=== PATIENT | female | born 1985 | race Caucasian/White ===

== ENCOUNTER 2016-05-28 06:19 | Inpatient (IN) | payer BC, MEDICAID ==
[2016-05-28] MEDS ORDERED: OXYTOCIN/NORMAL SALINE 1,000 ML IV PRN (06:23)
[2016-05-28] MEDS ORDERED: RINGERS SOLUTION,LACTATED 300 ML IV ONE (06:23)
[2016-05-28 07:11] LABS: APPEARANCE,URINE CLOUDY; BILIRUBIN,URINE NEGATIVE (NEGATIVE); GLUCOSE, URINE NEGATIVE (NEGATIVE); KETONES,URINE NEGATIVE (NEGATIVE); LEUKOCYTE ESTERASE,URINE SMALL (NEGATIVE); NITRITE,URINE NEGATIVE (NEGATIVE); PROTEIN,URINE NEGATIVE (NEGATIVE); URINE SPECIFIC GRAVITY 1.012; UROBILINOGEN,URINE NEGATIVE mg/dL (<2.0)
[2016-05-28 07:17] LABS: URINE BARBITURATES SCREEN NEGATIVE; URINE METHADONE SCREEN NEGATIVE; URINE OPIATES LOW NEGATIVE; URINE PHENCYCLIDINE SCREEN NEGATIVE
[2016-05-28 07:24] LABS: ABSOLUTE EOSINOPHILS # (AUTO) 0.1 10^3/uL (0.0-0.6); ABSOLUTE MONOCYTES (AUTO) 0.7 10^3/uL (0.1-1.4); ABSOLUTE NEUT (AUTO) 5.6 10^3/uL (1.7-8.2); BASOPHILS % (AUTO) 0.1 % (0-2); EOSINOPHILS % (AUTO) 1.5 % (0-6); HEMATOCRIT 33.6 % (36.0-47.0); HEMOGLOBIN 11.7 g/dL (12.0-15.5); HGB HCT DIFFERENCE 1.5; LYMPHOCYTES % (AUTO) 23.9 % (13-45); MEAN CORPUSCULAR HEMOGLOBIN 31.4 pg (27.0-33.4); MEAN CORPUSCULAR HGB CONC 34.8 g/dL (32.0-36.0); MEAN CORPUSCULAR VOLUME 90 fl (80-97); MONOCYTES % (AUTO) 8.1 % (3-13); RED BLOOD COUNT 3.73 10^6/uL (3.72-5.28); RED CELL DISTRIBUTION WIDTH 14.4 % (11.5-14.0); SEGMENTED NEUTROPHILS % (AUTO) 66.4 % (42-78); WHITE BLOOD COUNT 8.4 10^3/uL (4.0-10.5)
[2016-05-28 07:42] LABS: ALANINE AMINOTRANSFERASE 20 U/L (9-52); ALBUMIN 2.7 g/dL (3.5-5.0); ALKALINE PHOSPHATASE 97 U/L (38-126); ANION GAP 12 (5-19); ASPARTATE AMINO TRANSFERASE 16 U/L (14-36); BILIRUBIN,TOTAL 0.3 mg/dL (0.2-1.3); BLOOD UREA NITROGEN 6 mg/dL (7-20); CALCIUM 8.4 mg/dL (8.4-10.2); CARBON DIOXIDE 19 mmol/L (22-30); CHLORIDE 107 mmol/L (98-107); CREATININE RESULT 0.67 mg/dL (0.52-1.25); GLUCOSE 84 mg/dL (75-110); LDH 381 U/L (313-618); POTASSIUM 3.9 mmol/L (3.6-5.0); SODIUM 137.6 mmol/L (137-145); TOTAL PROTEIN 5.5 g/dL (6.3-8.2); URIC ACID 5.2 mg/dL (2.5-6.2)
--- NOTE | 2016-05-28 08:01 | L&D Flow Sheet ---
LD Flowsheet Datetime Report Generated by CPN: 05/28/2016 08:00 Datetime: 05/28/2016 07:43 Vital Signs NBP Sys/Josefina/Mean (mmHg): 127 (QS system process) : 83 (QS system process) : 101 (QS system process) Pulse: 85 (QS system process) Datetime: 05/28/2016 07:32 Vaginal Exam Dilatation (cm): 1.0 (Joanna Clark, MASSIMO) Effacement (%): 25 (Joanna Clark, MASSIMO) Station: -3 (Joanna Clark, MASSIMO) Exam by: HSamantha Clark RN (Joanna Clark, MASSIMO) Vaginal Bleeding: None (Joanna Clark RN) Cervix, Consistency: Moderate (Joanna Clark, MASSIMO) Cervix, Position: Posterior (Joanna Clark, MASSIMO) Datetime: 05/28/2016 07:20 Communication Communication Comments: Report given and care relinquished to H. Eduardo, RN (Ariella Lattibeaudeir, RN) Datetime: 05/28/2016 06:54 Patient Care Patient Care Comments: construction craft laborer at bedside (Ariella Lattibsavannaudeir, RN) Datetime: 05/28/2016 06:51 Uterine Activity Contraction Comments: toco applied (Ariellagabino Rodrigez, RN) Assessment A Comments: monitor applied (Ariella Rodrigez, RN)
[2016-05-28] MEDS ORDERED: MISOPROSTOL 0.1 MG TABLET PV ONE (08:41)
[2016-05-28] MEDS ORDERED: MISOPROSTOL 0.1 MG TABLET ONE (08:56)
[2016-05-28] MEDS: RINGERS SOLUTION,LACTATED 1,000 ML IV PRN ×3 (09:02→22:08)
--- NOTE | 2016-05-28 10:00 | L&D Flow Sheet ---
LD Flowsheet Datetime Report Generated by CPN: 05/28/2016 10:00 Datetime: 05/28/2016 09:54 Provider Reviewed Strip: Yes (Joanna Clark RN) Communication: Provider at Bedside (Joanna Clark RN) Provider Notified (Name): Adri QuinnPAYTON at bedside assessing patient and plan of care (Joanna Clark RN) Notification Reason: Status Update; Status; Labor Status; Uterine Activity; Lab/Diagnostic Study (Joanna Clark RN) Datetime: 05/28/2016 09:43 NBP Sys/Josefina/Mean (mmHg): 103 (QS system process) : 51 (QS system process) : 71 (QS system process) Pulse: 83 (QS system process) LaborFlag: Labor (QS system process) Datetime: 05/28/2016 09:13 Stage of : Labor (Joanna Clark, ) NBP Sys/Josefina/Mean (mmHg): 109 (QS system process) : 59 (QS system process) : 77 (QS system process) Pulse: 82 (QS system process) Respirations: 15 (Joanna Clark, ) LaborFlag: Labor (QS system process) Datetime: 05/28/2016 09:07 Cervical Ripening Agents: Cytotec @ (Annotations: 25 mcg PO; 25 mcg PV) (Joanna Clark, ) Datetime: 05/28/2016 09:04 I/O Interventions: Up to BR (Joanna Midland, RN) Datetime: 05/28/2016 09:00 Monitor Mode: External (Joanna Rossard, RN) Frequency (min): x1 (Joanna Midland, RN) Quality: Mild (Joanna Eduardo, RN) Duration (sec): 90 (Joanna Midland, RN) Resting Tone (Palpate): Relaxed (Joanna Midland, RN) Contraction Comments: irregular with uterine irritability noted (Joanna Midland, RN) Monitor Mode: External US (Joanna Midland, RN) FHR Baseline Rate : 125 (Joanna Midland, RN) FHR Baseline Changes: No Baseline Change (Joanna Eduardo, RN) Variability: Moderate 6-25 bpm (Joanna Eduardo, RN) Accelerations: 15X15 (Joanna Midland, RN) Decelerations: None (Joanna Midland, RN) Datetime: 05/28/2016 08:43 Stage of : Labor (Joanna Clark RN) NBP Sys/Josefina/Mean (mmHg): 128 (QS system process) : 82 (QS system process) : 99 (QS system process) Pulse: 82 (QS system process) Respirations: 14 (Joanna Clark RN) LaborFlag: Labor (QS system process) Datetime: 05/28/2016 08:35 Stage of : Labor (Joanna Clark RN) Temperature (F): 98.5 (Joanna Clark RN) Temperature (C): 36.9 (QS system process) Temperature Route: Oral (Joanna Clark RN) LaborFlag: Labor (QS system process) Datetime: 05/28/2016 08:30 Monitor Mode: External (Joanna Clark RN) Monitor Interventions for UA: Rulo Adjusted (Joanna Clark RN) Frequency (min): none (Joanna Clark RN) Resting Tone (Palpate): Relaxed (Joanna Clark RN) Contraction Comments: patient denies; none noted (Joanna Clark RN) Monitor Mode: External US (Joanna Clark RN) FHR Baseline Rate : 120 (Joanna Clark RN) FHR Baseline Changes: No Baseline Change (Joanna Clark RN) Variability: Moderate 6-25 bpm (Joanna Clark RN) Accelerations: 15X15 (Joanna Clark RN) Decelerations: None (Joanna Clark RN) Datetime: 05/28/2016 08:24 Monitor Interventions for UA: Rulo Adjusted (Joanna Clark RN) Monitor Mode: External US (Joanna Clark RN) Monitor Interventions for FHR: Ultrasound Adjusted (Joanna Clark RN) Variability: Moderate 6-25 bpm (Joanna Clark RN) Accelerations: 15X15 (Joanna Clark RN) Decelerations: None (Joanna Clark RN) Pain Scale: 0 (Joanna Clark RN) Pain Presence: None/Denies (Joanna Clark RN) Pain Type: N/A (Joanna Clark, MASSIMO) Pain Goal: 1 (Joanna Clark RN) Pain Relief Measures: Comfort Measures (Joanna Clark RN) Vaginal Bleeding: None (Joanna Clark RN) Level of Consciousness: Fully Conscious (Joanna Clark RN) DTR's/Clonus: DTRs 2+; No Clonus (Joanna Clark RN) Headache: Denies (Joanna Clark RN) Breath Sounds, Left: Clear and Equal (Joanna Midland, RN) Breath Sounds, Right: Clear and Equal (Joanna Clark, RN) Nausea/Vomiting: Denies (Joanna Clark, RN) RUQ Epigastric Pain: Denies (Joanna Clark, RN) IV/Blood Work: IV Infusing per Order (Joanna Clark, RN) Oxygen Method: Room Air (Joanna Clark, RN) Patient Position/Activity: Right Lateral; Low Fowlers (Joanna Clark, RN) Comfort Measures: Breathing/Relaxation; Family Support (Joanna Clark, RN) I/O Interventions: Clear Liquids Given (Joanna Clark, RN) Instructional Method: Verbal; Patient Instructed; Family/Support Person Instructed; Verbalized Understanding (Joanna Clark, RN) Plan of Care: Plan of Care Discussed; Vaginal Delivery; Labor; Induction (Joanna Clark, RN) Unit Routine: [place] to Room; Call Carter; Bed; Visiting Policy; Waiting Areas; Infant Security; Phone/Cell Phone Use; Photography; Unit Personnel; Handwashing; Flu/Illness Precautions; Monitoring; IV Pumps; Safety/Fall Risk Prevention; Diet/Nutrition Services; Bathroom Privileges; Routine Time Outs; Medications (Joanna Clark, RN) Labor/Induction: Labor Stages; Cervical Ripening; Induction; Artificial Rupture of Membranes; Interventions; Activity (Joanna Clark, RN) Pain Management: PRN Medications; Pain Scale/Goals; Comfort Measures (Joanna Clark, RN) Medications: Cervical Ripening; Pitocin (Joanna Clark, RN) PTL/PROM: Hydration; Signs/Symptoms of Infection; Expected Outcomes (Joanna Clark, RN) Related: Common Discomforts of ; Maternal Physical Changes; Maternal Emotional Changes; Nutrition; Hydration; Activity and Rest (Joanna Clark, RN) LaborFlag: Labor (QS system process) Datetime: 05/28/2016 08:13 Stage of : Labor (Joanna Clark RN) NBP Sys/Josefina/Mean (mmHg): 125 (QS system process) : 64 (QS system process) : 87 (QS system process) Pulse: 82 (QS system process) LaborFlag: Labor (QS system process) Datetime: 05/28/2016 08:00 Monitor Mode: External (Joanna Clark RN) Frequency (min): x1 (Joanna Clark RN) Quality: Mild (Joanna Clark RN) Duration (sec): 100 (Joanna Clark RN) Duration Criteria: Less than Two 120 Second Contractions (Joanna Clark RN) Resting Tone (Palpate): Relaxed (Joanna Clark, MASSIMO) Contraction Comments: irregular pattern (Joanna Clark, MASSIMO) Monitor Mode: External US (Joanna Clark, MASSIMO) FHR Baseline Rate : 125 (Joanna Clark RN) FHR Baseline Changes: No Baseline Change (Joanna Clark RN) Variability: Moderate 6-25 bpm (Joanna Clark, RN) Accelerations: 15X15 (Joanna Clark, RN) Decelerations: None (Joanna Clark, MASSIMO)
--- NOTE | 2016-05-28 12:01 | L&D Flow Sheet ---
LD Flowsheet Datetime Report Generated by CPN: 05/28/2016 12:00 Datetime: 05/28/2016 11:43 NBP Sys/Josefina/Mean (mmHg): 121 (QS system process) : 64 (QS system process) : 85 (QS system process) Pulse: 82 (QS system process) LaborFlag: Labor (QS system process) Datetime: 05/28/2016 11:33 Pain Presence: None/Denies (Joanna Clark, RN) Pain Type: N/A (Joanna Clark RN) Pain Relief Measures: Comfort Measures (Joanna Clark RN) Comfort Measures: Rocking Chair; Family Support (Joanna Clark RN) LaborFlag: Labor (QS system process) Datetime: 05/28/2016 11:30 Monitor Mode: External (Joanna Clark RN) Monitor Interventions for UA: Jackpot Adjusted (Joanna Clark RN) Frequency (min): x1 (Joanna Clark RN) Duration (sec): 80 (Joanna Clark RN) Resting Tone (Palpate): Relaxed (Joanna Clark, MASSIMO) Contraction Comments: irregular; uterine irritability (Joanna Clark, MASSIMO) Monitor Mode: External US (Joanna Clark, MASSIMO) FHR Baseline Rate : 120 (Joanna Clark RN) FHR Baseline Changes: No Baseline Change (Joanna Clark RN) Variability: Moderate 6-25 bpm (Joanna Clark, MASSIMO) Accelerations: 15X15 (Joanna Clark, RN) Decelerations: None (Joanna Clark RN) Comments: audible movement noted (Joanna Clark RN) Datetime: 05/28/2016 11:25 I/O Interventions: Up to BR (Joanna Clark RN) Datetime: 05/28/2016 11:13 Stage of : Labor (Joanna Clark RN) NBP Sys/Josefina/Mean (mmHg): 91 (QS system process) : 49 (QS system process) : 68 (QS system process) Pulse: 75 (QS system process) Respirations: 16 (Joanna Clark RN) LaborFlag: Labor (QS system process) Datetime: 05/28/2016 11:00 Monitor Mode: External (Joanna Clark RN) Frequency (min): 2-9 (Joanna Clark RN) Quality: Mild (Joanna Clark RN) Duration (sec): 50-90 (Joanna Clark RN) Resting Tone (Palpate): Relaxed (Joanna Clark RN) Contraction Comments: irregular; uterine irritability (Joanna Clark RN) Monitor Mode: External US (Joanna Clark RN) FHR Baseline Rate : 125 (oJanna Clark RN) FHR Baseline Changes: No Baseline Change (Joanna Clark RN) Variability: Moderate 6-25 bpm (Joanna Clark RN) Accelerations: 15X15 (Joanna Clark, RN) Decelerations: None (Joanna Clark, RN) Datetime: 05/28/2016 10:43 Stage of : Labor (Joanna Clark RN) NBP Sys/Josefina/Mean (mmHg): 106 (QS system process) : 57 (QS system process) : 77 (QS system process) Pulse: 82 (QS system process) Respirations: 14 (Joanna Clark RN) LaborFlag: Labor (QS system process) Datetime: 05/28/2016 10:30 Monitor Mode: External (Joanna Clark RN) Frequency (min): x2 (Joanna Clark RN) Quality: Mild (Joanna Clark RN) Duration (sec): 60/70 (Joanna Clark RN) Resting Tone (Palpate): Relaxed (Joanna Clark RN) Monitor Mode: External US (Joanna Clark RN) FHR Baseline Rate : 130 (Joanna Clark RN) FHR Baseline Changes: No Baseline Change (Joanna Clark RN) Variability: Moderate 6-25 bpm (Joanna Clark RN) Accelerations: 15X15 (Joanna Clark RN) Decelerations: None (Joanna Clark RN) Datetime: 05/28/2016 10:13 Stage of : Labor (Joanna Clark RN) NBP Sys/Josefina/Mean (mmHg): 104 (QS system process) : 51 (QS system process) : 73 (QS system process) Pulse: 81 (QS system process) Respirations: 16 (Joanna Clark RN) LaborFlag: Labor (QS system process) Datetime: 05/28/2016 10:00 Monitor Mode: External (Joanna Clark RN) Monitor Interventions for UA: Jackpot Adjusted (Joanna Clark RN) Frequency (min): none (Joanna Clark RN) Resting Tone (Palpate): Relaxed (Joanna Clark RN) Contraction Comments: patient denies; uterine irritability noted (Joanna Clark RN) Monitor Mode: External US (Joanna Clark RN) FHR Baseline Rate : 130 (Joanna Clark RN) FHR Baseline Changes: No Baseline Change (Joanna Clark RN) Variability: Moderate 6-25 bpm (Joanna Clark RN) Accelerations: 15X15 (Joanna Clark RN) Decelerations: None (Joanna Clark RN)
[2016-05-28] MEDS ORDERED: OXYTOCIN/NORMAL SALINE 20 UNIT/1,000 ML RTUINJ ONE ×2 (13:03→17:49)
--- NOTE | 2016-05-28 13:56 | L&D Progress Notes ---
PROGRESS NOTES Datetime Report Generated by CPN: 05/28/2016 13:56 PROGRESS NOTE Impression: Normal Progression of Labor Plan: Continue Present Management; Anticipate Vaginal Delivery Informed Consent Obtained: Vaginal Delivery; Risks, Benefits and Alternatives Discussed Vital Signs : Reviewed Comment: induction of labor cervix favorable after cytotec 25 mcg po and 25 mcg pv pt reports increased pressure 2/70/0 start pitocin anticipate VAGINAL EXAM Dilatation: 2 Effacement: 70 Station: 0 Contractions: irregular MEMBRANES Membranes: Intact FETUS A FHR - Baseline: 120 Monitoring: External US Variability: Moderate 6-25bpm Accelerations: 15X15 Decelerations: None FHR Category: Category I SIGNATURE SIGNATURE: [id number] Assignment: Jenifer Saini MD Signature: with User ID: [email or web address] : with User ID: [email or web address]
--- NOTE | 2016-05-28 14:01 | L&D Flow Sheet ---
LD Flowsheet Datetime Report Generated by CPN: 05/28/2016 14:00 Datetime: 05/28/2016 13:45 NBP Sys/Josefina/Mean (mmHg): 122 (QS system process) : 61 (QS system process) : 85 (QS system process) Pulse: 85 (QS system process) LaborFlag: Labor (QS system process) Datetime: 05/28/2016 13:30 NBP Sys/Josefina/Mean (mmHg): 116 (QS system process) : 62 (QS system process) : 81 (QS system process) Pulse: 84 (QS system process) Monitor Mode: External (Joanna Union, RN) Frequency (min): 2-3.5 (Joanna Union, RN) Quality: Mild (Joanna Eduardo, RN) Duration (sec): 50-80 (Joanna Eduardo, RN) Duration Criteria: Less than Two 120 Second Contractions (Joanna Union, RN) Pattern: Normal: <= 5 Contractions in 10 Minutes (Joanna Rossard, RN) Resting Tone (Palpate): Relaxed (Joanna Union, RN) Monitor Mode: External US (Jonana Rossard, RN) FHR Baseline Rate : 135 (Joanna Union, RN) FHR Baseline Changes: No Baseline Change (Joanna Union, RN) Variability: Moderate 6-25 bpm (Ojanna Union, RN) Accelerations: 15X15 (Joanna Eduardo, RN) Decelerations: None (Joanna Union, RN) LaborFlag: Labor (QS system process) Datetime: 05/28/2016 13:15 Monitor Mode: External (Joanna Union, RN) Frequency (min): x1 (Joanna Union, RN) Quality: Mild (Joanna Union, RN) Duration (sec): 60 (Joanna Eduardo, RN) Resting Tone (Palpate): Relaxed (Joanna Rossard, RN) Monitor Mode: External US (Joanna Rossard, RN) FHR Baseline Rate : 130 (Joanna Union, RN) FHR Baseline Changes: No Baseline Change (Joanna Union, RN) Variability: Moderate 6-25 bpm (Joanna Eduardo, RN) Accelerations: 15X15 (Joanna Union, RN) Decelerations: None (Joanna Union, MASSIMO) Pitocin (milliunit): Pitocin Remains (milliunits) @ (Annotations: 2) (Joanna Clark, MASSIMO) Datetime: 05/28/2016 13:13 Stage of : Labor (Joanna Clark, MASSIMO) NBP Sys/Josefina/Mean (mmHg): 131 (QS system process) : 83 (QS system process) : 102 (QS system process) Pulse: 97 (QS system process) Respirations: 12 (Joanna Clark, MASSIMO) LaborFlag: Labor (QS system process) Datetime: 05/28/2016 13:10 Pitocin (milliunit): Pitocin Started (milliunits) @ 2 (Joanna Clark, MASSIMO) Datetime: 05/28/2016 13:03 Patient Position/Activity: High Fowlers; Tailors (Joanna Clark, MASSIMO) Datetime: 05/28/2016 13:00 Stage of : Labor (Joanna Clark RN) Monitor Mode: External (Joanna Clark, AMSSIMO) Frequency (min): 2.5-3 (Joanna Clark, MASSIMO) Quality: Mild (Joanna Clark RN) Duration (sec): 60-90 (Joanna Clark, MASSIMO) Duration Criteria: Less than Two 120 Second Contractions (Joanna Clark, MASSIMO) Pattern: Normal: <= 5 Contractions in 10 Minutes (Joanna Clark, MASSIMO) Resting Tone (Palpate): Relaxed (Joanna Clark, MASSIMO) Monitor Mode: External US (Joanna Clark, MASSIMO) FHR Baseline Rate : 130 (Joanna Clark, MASSIMO) FHR Baseline Changes: No Baseline Change (Joanna Clark, MASSIMO) Variability: Moderate 6-25 bpm (Joanna Clark, MASSIMO) Accelerations: 15X15 (Joanna Clark, MASSIMO) Decelerations: None (Joanna Clark, MASSIMO) Pain Scale: 1 (Joanna Clark RN) Pain Presence: Intermittent (Joanna Clark, MASSIMO) Pain Type: tightening (Joanna Clark, MASSIMO) Pain Location: Abdomen (Joanna Clark RN) Pain Goal: 1 (Joanna Eduardo, RN) Pain Relief Measures: Comfort Measures (Joanna Clark RN) Pain Coping: Talking Through Contractions (Joanna Clark RN) Instructional Method: Verbal; Patient Instructed; Family/Support Person Instructed; Verbalized Understanding (Joanna Clark RN) Plan of Care: Labor; Induction (Joanna Clark RN) Labor/Induction: Augmentation; Induction (Joanna Clark RN) Pain Management: Pain Scale/Goals; Comfort Measures (Joanna Clark, RN) Medications: Pitocin (Joanna Clark RN) LaborFlag: Labor (QS system process) Datetime: 05/28/2016 12:57 Dilatation (cm): 2.0 (Joanna Clark, MASSIMO) Effacement (%): 70 (Joanna Clark, RN) Station: 0 (Joanna Clark, RN) Exam by: Louis Quinn CNM (Joanna Clark, RN) Vaginal Bleeding: None (Joanna Clark, RN) Cervix, Consistency: Soft (Joanna Clark, RN) Cervix, Position: Midposition (Joanna Clark, RN) Datetime: 05/28/2016 12:45 Monitor Mode: External (Joanna Rossard, RN) Frequency (min): x1 (Joanna Eduardo, RN) Quality: Mild (Joanna Union, RN) Duration (sec): 60 (Joanna Union, RN) Duration Criteria: Less than Two 120 Second Contractions (Joanna Eduardo, RN) Pattern: Normal: <= 5 Contractions in 10 Minutes (Joanna Union, RN) Resting Tone (Palpate): Relaxed (Joanna Union, RN) Monitor Mode: External US (Joanna Rossard, RN) FHR Baseline Rate : 135 (Joanna Eduardo, RN) FHR Baseline Changes: No Baseline Change (Joanna Union, RN) Variability: Moderate 6-25 bpm (Joanna Eduardo, RN) Accelerations: 15X15 (Joanna Union, RN) Decelerations: None (Joanna Union, RN) Datetime: 05/28/2016 12:43 Stage of : Labor (Joanna Rossard, RN) NBP Sys/Josefina/Mean (mmHg): 134 (QS system process) : 69 (QS system process) : 95 (QS system process) Pulse: 78 (QS system process) Respirations: 15 (Joanna Eduardo, RN) LaborFlag: Labor (QS system process) Datetime: 05/28/2016 12:30 Monitor Mode: External (Joanna Union, RN) Frequency (min): 2-3 (Joanna Union, RN) Quality: Mild (Joanna Eduardo, RN) Duration (sec): 60-110 (Joanna Eduardo, RN) Duration Criteria: Less than Two 120 Second Contractions (Joanna Union, RN) Pattern: Normal: <= 5 Contractions in 10 Minutes (Joanna Eduardo, RN) Resting Tone (Palpate): Relaxed (Joanna Union, RN) Monitor Mode: External US (Joanna Union, RN) FHR Baseline Rate : 130 (Joanna Union, RN) FHR Baseline Changes: No Baseline Change (Joanna Union, RN) Variability: Moderate 6-25 bpm (Joanna Eduardo, RN) Accelerations: 15X15 (Joanna Union, RN) Decelerations: None (Joanna Union, RN) Datetime: 05/28/2016 12:28 Patient Care Comments: Patient eating lunch as ordered by Adri Quinn CNM (Joanna Union, RN) Datetime: 05/28/2016 12:13 Stage of : Labor (Joanna Clark RN) NBP Sys/Josefina/Mean (mmHg): 131 (QS system process) : 60 (QS system process) : 87 (QS system process) Pulse: 84 (QS system process) Respirations: 14 (Joanna Clark RN) Temperature (F): 98.4 (Joanna Clark RN) Temperature (C): 36.9 (QS system process) Temperature Route: Axillary (Joanna Clark RN) LaborFlag: Labor (QS system process) Datetime: 05/28/2016 12:00 Monitor Mode: External (Joanna Clark RN) Frequency (min): 2-4 (Joanna Clark RN) Quality: Mild (Joanna Clark RN) Duration (sec): 70-110 (Joanna Clark RN) Duration Criteria: Less than Two 120 Second Contractions (Joanna Clark RN) Pattern: Normal: <= 5 Contractions in 10 Minutes (Joanna Clark RN) Resting Tone (Palpate): Relaxed (Joanna Clark RN) Contraction Comments: patient reports feeling intermittent abdominal tightening (Joanna Clark RN) Monitor Mode: External US (Joanna Clark RN) FHR Baseline Rate : 130 (Joanna Clark RN) FHR Baseline Changes: No Baseline Change (Joanna Clark RN) Variability: Moderate 6-25 bpm (Joanna Clark RN) Accelerations: 15X15 (Joanna Union, RN) Decelerations: None (Joanna Clark RN) Pain Scale: 1 (Joanna Clark RN) Pain Presence: Intermittent (Joanna Clark, RN) Pain Location: Abdomen (Joanna Clark, MASSIMO) Pain Goal: 1 (Joanna Clark RN) Pain Relief Measures: Comfort Measures (Joanna Clark, MASSIMO) Pain Coping: Talking Through Contractions (Joanna Clark, RN) Pain Assessment Comments: intermittent abdominal tightening (Joanna Clark, MASSIMO) Comfort Measures: Rocking Chair; Family Support (Joanna Clark RN) LaborFlag: Labor (QS system process)
--- NOTE | 2016-05-28 16:01 | L&D Flow Sheet ---
LD Flowsheet Datetime Report Generated by CPN: 05/28/2016 16:00 Datetime: 05/28/2016 15:59 IV/Blood Work: IV Infusing per Order (Joanna Clark, RN) Patient Position/Activity: Left Tilt; High Fowlers (Joanna Rossard, RN) Datetime: 05/28/2016 15:52 I/O Interventions: Up to BR (Joanna Clark, RN) Datetime: 05/28/2016 15:45 Monitor Mode: External; Palpation (Joanna Clark, RN) Monitor Interventions for UA: [place] Adjusted (Joanna Clark, RN) Frequency (min): 2-3 (Joanna Clark, RN) Quality: Mild/Moderate (Joanna Clark, RN) Duration (sec): 50-70 (Joanna Clark, RN) Duration Criteria: Less than Two 120 Second Contractions (Joanna Clark, RN) Pattern: Normal: <= 5 Contractions in 10 Minutes (Joanna Clark, RN) Resting Tone (Palpate): Relaxed (Joanna Clark, RN) Monitor Mode: External US (Joanna Clark, RN) FHR Baseline Rate : 140 (Joanna Clark, RN) FHR Baseline Changes: No Baseline Change (Joanna Clark, RN) Variability: Moderate 6-25 bpm (Joanna Clark, RN) Accelerations: 15X15 (Joanna Clark, RN) Decelerations: None (Joanna Clark, RN) Communication: RN at Bedside (Joanna Clark, MASSIMO) Datetime: 05/28/2016 15:33 Patient Care Comments: standing at side of bed swaying; family support at bedside (Joanna Clark, RN) Datetime: 05/28/2016 15:30 Monitor Mode: External (Joanna Clark, RN) Frequency (min): 1.5-2 (Joanna Clark, RN) Quality: Mild/Moderate (Joanna Clark, RN) Duration (sec): 50-60 (Joanna Clark, RN) Duration Criteria: Less than Two 120 Second Contractions (Joanna Clark, RN) Pattern: Normal: <= 5 Contractions in 10 Minutes (Joanna Clark, RN) Resting Tone (Palpate): Relaxed (Joanna Clark, RN) Monitor Mode: External US (Joanna Clark, RN) FHR Baseline Rate : 135 (Joanna Clark, RN) FHR Baseline Changes: No Baseline Change (Joanna Clark, RN) Variability: Moderate 6-25 bpm (Joanna Jersey, RN) Accelerations: 15X15 (Joanna Jersey, RN) Decelerations: None (Joanna Rossard, RN) Pitocin (milliunit): Pitocin Increased to (milliunits) @ (Annotations: 10) (Joanna Clark, RN) Datetime: 05/28/2016 15:15 Monitor Mode: External (Joanna Clark, MASSIMO) Frequency (min): 1.5-4 (Joanna Clark RN) Quality: Mild/Moderate (Joanna Clark, RN) Duration (sec): 50-60 (Joanna Clark, RN) Duration Criteria: Less than Two 120 Second Contractions (Joanna Clark, MASSIMO) Pattern: Normal: <= 5 Contractions in 10 Minutes (Joanna Clark RN) Resting Tone (Palpate): Relaxed (Joanna Clark, MASSIMO) Monitor Mode: External US (Joanna Clark, MASSIMO) FHR Baseline Rate : 130 (Joanna Clark RN) FHR Baseline Changes: No Baseline Change (Joanna Clark RN) Variability: Moderate 6-25 bpm (Joanna Clark, RN) Accelerations: 10X10 (Joanna Clark, MASSIMO) Decelerations: None (Joanna Clark, MASSIMO) Pitocin (milliunit): Pitocin Remains (milliunits) @ (Annotations: 8) (Joanna Clark, MASSIMO) Datetime: 05/28/2016 15:00 Stage of : Labor (Joanna Clark, MASSIMO) NBP Sys/Josefina/Mean (mmHg): 131 (QS system process) : 58 (QS system process) : 83 (QS system process) Pulse: 82 (QS system process) Respirations: 16 (Joanna Clark, MASSIMO) Monitor Mode: External (Joanna Clark, MASSIMO) Frequency (min): 1-4 (Joanna Clark RN) Quality: Mild/Moderate (Joanna Clark RN) Duration (sec): 50-70 (Joanna Clark RN) Duration Criteria: Less than Two 120 Second Contractions (Joanna Clark RN) Pattern: Normal: <= 5 Contractions in 10 Minutes (Joanna Clark RN) Resting Tone (Palpate): Relaxed (Joanna Clark RN) Monitor Mode: External US (Joanna Clark RN) FHR Baseline Rate : 130 (Joanna Clark RN) FHR Baseline Changes: No Baseline Change (Joanna Clark RN) Variability: Moderate 6-25 bpm (Joanna Clark RN) Accelerations: 15X15 (Joanna Clark RN) Decelerations: None (Joanna Clark RN) Pain Scale: 2 (Joanna Clark RN) Pain Presence: Intermittent (Joanna Clark RN) Pain Type: Contraction (Joanna Clark RN) Pain Location: Abdomen (Joanna Clark RN) Pain Goal: 1 (Joanna Clark RN) Pain Relief Measures: Comfort Measures (Joanna Clakr RN) Pain Coping: Breathing Through Contractions (Joanna Clark RN) Pitocin (milliunit): Pitocin Increased to (milliunits) @ (Annotations: 8) (Joanna Clark RN) LaborFlag: Labor (QS system process) Datetime: 05/28/2016 14:45 NBP Sys/Josefina/Mean (mmHg): 128 (QS system process) : 59 (QS system process) : 85 (QS system process) Pulse: 85 (QS system process) Monitor Mode: External (Joanna Clark RN) Frequency (min): 2-2.5 (Joanna Clark RN) Quality: Mild/Moderate (Joanna Clark RN) Duration (sec): 50-70 (Joanna Clark, MASSIMO) Duration Criteria: Less than Two 120 Second Contractions (Joanna Clark RN) Pattern: Normal: <= 5 Contractions in 10 Minutes (Joanna Clark RN) Resting Tone (Palpate): Relaxed (Joanna Clark, MASSIMO) Monitor Mode: External US (Joanna Clark, MASSIMO) FHR Baseline Rate : 135 (Joanna Clark RN) FHR Baseline Changes: No Baseline Change (Joanna Clark RN) Variability: Moderate 6-25 bpm (Joanna Clark, MASSIMO) Accelerations: 15X15 (Joanna Clark, MASSIMO) Decelerations: None (Joanna Clark, MASSIMO) Pitocin (milliunit): Pitocin Remains (milliunits) @ (Annotations: 6) (Joanna Clark RN) LaborFlag: Labor (QS system process) Datetime: 05/28/2016 14:35 Patient Care Comments: Sitting in rocking chair; family support at bedside (Joanna Clark RN) Datetime: 05/28/2016 14:30 Monitor Mode: External; Palpation (Joanna Clark RN) Frequency (min): 2-3 (Joanna Clark RN) Quality: Mild/Moderate (Joanna Clark RN) Duration (sec): 50-60 (Joanna Clark RN) Duration Criteria: Less than Two 120 Second Contractions (Joanna Clark RN) Pattern: Normal: <= 5 Contractions in 10 Minutes (Joanna Clark RN) Resting Tone (Palpate): Relaxed (Joanna Clark RN) Monitor Mode: External US (Joanna Clark RN) FHR Baseline Rate : 135 (Joanna Clark RN) FHR Baseline Changes: No Baseline Change (Joanna Clark RN) Variability: Moderate 6-25 bpm (Joanna Clark RN) Accelerations: 15X15 (Joanna Clark RN) Decelerations: None (Joanna Clark RN) Comments: audible movement noted; patient reports positive movement (Joanna Clark RN) Pitocin (milliunit): Pitocin Increased to (milliunits) @ (Annotations: 6) (Joanna Clark RN) Datetime: 05/28/2016 14:15 Stage of : Labor (Joanna Clark RN) NBP Sys/Josefina/Mean (mmHg): 137 (QS system process) : 61 (QS system process) : 88 (QS system process) Pulse: 76 (QS system process) Respirations: 14 (Joanna Clark RN) Monitor Mode: External (Joanna Clark RN) Frequency (min): 1.5-2 (Joanna Clark RN) Quality: Mild/Moderate (Joanna Clark RN) Duration (sec): 40-60 (Joanna Clark RN) Duration Criteria: Less than Two 120 Second Contractions (Joanna Clark RN) Pattern: Normal: <= 5 Contractions in 10 Minutes (Joanna Clark RN) Resting Tone (Palpate): Relaxed (Joanna Clark RN) Monitor Mode: External US (Joanna Clark RN) FHR Baseline Rate : 135 (Joanna Clark RN) FHR Baseline Changes: No Baseline Change (Joanna Clark RN) Variability: Moderate 6-25 bpm (Joanna Clark RN) Accelerations: 15X15 (Joanna Clark RN) Decelerations: None (Joanna Clark RN) Pitocin (milliunit): Pitocin Remains (milliunits) @ (Annotations: 4) (Joanna Clark RN) LaborFlag: Labor (QS system process) Datetime: 05/28/2016 14:13 Pain Scale: 2 (Joanna Clark RN) Pain Presence: Intermittent (Joanna Clark RN) Pain Type: Contraction (Joanna Clark RN) Pain Location: Abdomen (Joanna Clark, MASSIMO) Pain Goal: 1 (Joanna Clark RN) Pain Relief Measures: Comfort Measures (Joanna Clark, MASSIMO) Pain Coping: Breathing Through Contractions (Joanna Clark RN) Patient Position/Activity: Birthing Ball (Joanna Clark, MASSIMO) Comfort Measures: Breathing/Relaxation; Family Support (Joanna Clark, MASSIMO) Patient Care Comments: family support at bedside (Joanna Clark RN) LaborFlag: Labor (QS system process) Datetime: 05/28/2016 14:00 Stage of : Labor (Joanna Clark RN) NBP Sys/Josefina/Mean (mmHg): 122 (QS system process) : 63 (QS system process) : 84 (QS system process) Pulse: 87 (QS system process) Respirations: 12 (Joanna Clark RN) Monitor Mode: External (Joanna Clark RN) Frequency (min): 2-3 (Joanna Clark RN) Quality: Mild/Moderate (Joanna Clark RN) Duration (sec): 60-80 (Joanna Clark RN) Duration Criteria: Less than Two 120 Second Contractions (Joanna Clark RN) Pattern: Normal: <= 5 Contractions in 10 Minutes (Joanna Clark RN) Resting Tone (Palpate): Relaxed (Joanna Clark RN) Monitor Mode: External US (Joanna Clark RN) FHR Baseline Rate : 130 (Joanna Clark RN) FHR Baseline Changes: No Baseline Change (Joanna Clark RN) Variability: Moderate 6-25 bpm (Joanna Clark RN) Accelerations: 15X15 (Joanna Clark RN) Decelerations: None (Joanna Clark RN) Pitocin (milliunit): Pitocin Increased to (milliunits) @ (Annotations: 4) (Joanna Clark RN) LaborFlag: Labor (QS system process)
[2016-05-28] MEDS ORDERED: LIDOCAINE 1% INJ-PF (10 MG/ML) 30 ML SDV ONE (17:49)
[2016-05-28] MEDS ORDERED: MISOPROSTOL 0.2 MG TABLET ONE (17:49)
--- NOTE | 2016-05-28 18:01 | L&D Flow Sheet ---
LD Flowsheet Datetime Report Generated by CPN: 05/28/2016 18:00 Datetime: 05/28/2016 17:57 Pitocin (milliunit): Pitocin Decreased to (milliunits) @ 12 (Joanna Clark, RN) Datetime: 05/28/2016 17:56 Dilatation (cm): 3.0 (Joanna Clark, RN) Effacement (%): 90 (Joanna Clark, MASSIMO) Station: 0 (Joanna Clark RN) Exam by: Louis Quinn CNM (Joanna Clark RN) Vaginal Bleeding: Normal Show (Joanna Clark RN) Cervix, Consistency: Soft (Joanna Clark RN) Cervix, Position: Midposition (Joanna Clark RN) Datetime: 05/28/2016 17:47 Patient Position/Activity: High Fowlers; Tailors (Joanna Clark RN) Datetime: 05/28/2016 17:32 Stage of : Labor (Joanna Clark RN) NBP Sys/Josefina/Mean (mmHg): 121 (QS system process) : 61 (QS system process) : 82 (QS system process) Pulse: 88 (QS system process) Respirations: 15 (Joanna Clark RN) LaborFlag: Labor (QS system process) Datetime: 05/28/2016 17:30 Monitor Mode: External (Joanna Gage, RN) Frequency (min): 1.5-2 (Joanna Gage, RN) Quality: Moderate (Joanna Gage, RN) Duration (sec): 60-90 (Joanna Gage, RN) Duration Criteria: Less than Two 120 Second Contractions (Joanna Gage, RN) Pattern: Normal: <= 5 Contractions in 10 Minutes (Joanna Eduardo, RN) Resting Tone (Palpate): Relaxed (Joanna Eduardo, RN) Monitor Mode: External US (Joanna Gage, RN) FHR Baseline Rate : 125 (Joanna Gage, RN) FHR Baseline Changes: No Baseline Change (Joanna Gage, RN) Variability: Moderate 6-25 bpm (Joanna Eduardo, RN) Accelerations: 15X15 (Joanna Gage, RN) Decelerations: None (Joanna Gage, RN) Pitocin (milliunit): Pitocin Remains (milliunits) @ (Annotations: 14) (Joanna Eduardo, RN) Datetime: 05/28/2016 17:19 Patient Position/Activity: Left Extreme; Peanut Ball (Joanna Eduardo, RN) Datetime: 05/28/2016 17:15 Monitor Mode: External (Joanna Clark, MASSIMO) Monitor Interventions for UA: [place] Adjusted (Joanna Clark, RN) Frequency (min): 2-4.5 (Joanna Clark, RN) Quality: Mild/Moderate (Joanna Clark, RN) Duration (sec): 60-70 (Joanna Clark, RN) Duration Criteria: Less than Two 120 Second Contractions (Joanna Clark, RN) Pattern: Normal: <= 5 Contractions in 10 Minutes (Joanna Clark, RN) Resting Tone (Palpate): Relaxed (Joanna Clark, MASSIMO) Monitor Mode: External US (Joanna Clark, MASSIMO) FHR Baseline Rate : 130 (Joanna Clark, RN) FHR Baseline Changes: No Baseline Change (Joanna Clark, RN) Variability: Moderate 6-25 bpm (Joanna Clark, RN) Accelerations: 15X15 (Joanna Clark, RN) Decelerations: None (Joanna Clark, RN) Pitocin (milliunit): Pitocin Increased to (milliunits) @ (Annotations: 14) (Joanna Clark, RN) Datetime: 05/28/2016 17:01 Stage of : Labor (Joanna Clark RN) NBP Sys/Josefina/Mean (mmHg): 135 (QS system process) : 84 (QS system process) : 103 (QS system process) Pulse: 80 (QS system process) Respirations: 17 (Joanna Clark RN) LaborFlag: Labor (QS system process) Datetime: 05/28/2016 17:00 Stage of : Labor (Joanna Clark, MASSIMO) Monitor Interventions for UA: [place] Adjusted (Joanna Clark RN) Contraction Comments: unable to determine due to patient position (Jonana Clark, MASSIMO) Monitor Mode: External US (Joanna Clark RN) FHR Baseline Rate : 135 (Joanna Clark RN) FHR Baseline Changes: No Baseline Change (Joanna Clark RN) Variability: Moderate 6-25 bpm (Joanna Clark RN) Accelerations: 15X15 (Joanna Clark, RN) Decelerations: None (Joanna Clark, MASSIMO) Pain Scale: 3 (Joanna Clark, MASSIMO) Pain Presence: Intermittent (Joanna Clark RN) Pain Type: Contraction (Joanna Clark RN) Pain Location: Abdomen (Joanna Clark, MASSIMO) Pain Goal: 1 (Joanna Clark RN) Pain Relief Measures: Comfort Measures (Joanna Clark, MASSIMO) Pain Coping: Breathing Through Contractions (Joanna Clark RN) Pitocin (milliunit): Pitocin Remains (milliunits) @ (Annotations: 12) (Joanna Clark RN) LaborFlag: Labor (QS system process) Datetime: 05/28/2016 16:47 IV/Blood Work: IV Infusing per Order (Joanna Clark RN) Patient Position/Activity: Peanut Ball; Right Extreme (Joanna Clark RN) Datetime: 05/28/2016 16:45 Monitor Mode: External (Joanna Clark RN) Frequency (min): 1.5-3 (Joanna Clark RN) Quality: Moderate (Joanna Clark RN) Duration (sec): 60-90 (Joanna Clark RN) Duration Criteria: Less than Two 120 Second Contractions (Joanna Clark RN) Pattern: Normal: <= 5 Contractions in 10 Minutes (Joanna Clark RN) Resting Tone (Palpate): Relaxed (Joanna Clark RN) Monitor Mode: External US (Joanna Clark RN) FHR Baseline Rate : 130 (Joanna Clark RN) FHR Baseline Changes: No Baseline Change (Joanna Clark RN) Variability: Moderate 6-25 bpm (Joanna Clark RN) Accelerations: 15X15 (Joanna Clark RN) Decelerations: None (Joanna Clark RN) Pitocin (milliunit): Pitocin Remains (milliunits) @ (Annotations: 12) (Joanna Clark RN) Datetime: 05/28/2016 16:32 Stage of : Labor (Joanna Clark RN) NBP Sys/Josefina/Mean (mmHg): 131 (QS system process) : 74 (QS system process) : 96 (QS system process) Pulse: 82 (QS system process) Respirations: 18 (Joanna Clark RN) LaborFlag: Labor (QS system process) Datetime: 05/28/2016 16:30 Monitor Mode: External (Joanna Clark RN) Frequency (min): 1.5-3 (Joanna Clark RN) Quality: Moderate (Joanna Clark RN) Duration (sec): 60-80 (Joanna Clark RN) Duration Criteria: Less than Two 120 Second Contractions (Joanna Clark RN) Pattern: Normal: <= 5 Contractions in 10 Minutes (Joanna Clark RN) Resting Tone (Palpate): Relaxed (Joanna Clark RN) Monitor Mode: External US (Joanna Clark RN) FHR Baseline Rate : 130 (Joanna Clark RN) FHR Baseline Changes: No Baseline Change (Joanna Clark, MASSIMO) Variability: Moderate 6-25 bpm (Joanna Clark, RN) Accelerations: 15X15 (Joanna Clark, RN) Decelerations: None (Joanna Clark RN) Pitocin (milliunit): Pitocin Remains (milliunits) @ (Annotations: 12) (Joanna Clark, RN) Datetime: 05/28/2016 16:15 Monitor Mode: External (Joanna Clark, MASSIMO) Frequency (min): 1-2.5 (Joanna Clark, MASSIMO) Quality: Mild/Moderate (Joanna Clark, MASSIMO) Duration (sec): 60-80 (Joanna Clark, MASSIMO) Duration Criteria: Less than Two 120 Second Contractions (Joanna Clark, MASSIMO) Pattern: Normal: <= 5 Contractions in 10 Minutes (Joanna Clark, MASSIMO) Resting Tone (Palpate): Relaxed (Joanna Clark, MASSIMO) Monitor Mode: External US (Joanna Clark, MASSIMO) FHR Baseline Rate : 135 (Joanna Clark RN) FHR Baseline Changes: No Baseline Change (Joanna Clark, RN) Variability: Moderate 6-25 bpm (Joanna Clark, RN) Accelerations: 15X15 (Joanna Clark, RN) Decelerations: None (Joanna Clark, RN) Comments: audible movement noted (Joanna Clark RN) Pitocin (milliunit): Pitocin Remains (milliunits) @ (Annotations: 12) (Joanna Clark, RN) Datetime: 05/28/2016 16:09 IV/Blood Work: IV Infusing per Order (Joanna Clark RN) Patient Position/Activity: High Fowlers; Tailors (Joanna Clark RN) Datetime: 05/28/2016 16:04 Dilatation (cm): 3.0 (Joanna Clark RN) Effacement (%): 80 (Joanna Clark RN) Station: 0 (Joanna Clark RN) Exam by: Louis Quinn CNM (Joanna Clark, MASSIMO) Membrane Status: Ruptured (Joanna Clark RN) Membranes Rupture Method: Artificial (Joanna Clark, MASSIMO) Amniotic Fluid Color: Clear (Joanna Clark, RN) Amniotic Fluid Amount: Moderate (Joanna Clark, RN) Amniotic Fluid Odor: Normal (Joanna Clark, MASSIMO) Vaginal Bleeding: Normal Show (Joanna Clark RN) Cervix, Consistency: Soft (Joanna Clark RN) Cervix, Position: Midposition (Joanna Clark RN) Provider Reviewed Strip: Yes (Joanna Clark RN) Communication: RN at Bedside; RN Reviewed Strip; Provider at Bedside (Joanna Clark RN) Datetime: 05/28/2016 16:00 Stage of : Labor (Joanna Clark RN) NBP Sys/Josefina/Mean (mmHg): 109 (QS system process) : 62 (QS system process) : 80 (QS system process) Pulse: 78 (QS system process) Respirations: 15 (Joanna Clark RN) Temperature (F): 98.3 (Joanna Clark RN) Temperature (C): 36.8 (QS system process) Temperature Route: Oral (Joanna Clark RN) Monitor Mode: External (Joanna Clark, MASSIMO) Frequency (min): 2.5-3 (Joanna Clark RN) Quality: Mild/Moderate (Joanna Clark RN) Duration (sec): 60-80 (Joanna Clark RN) Duration Criteria: Less than Two 120 Second Contractions (Joanna Clark RN) Pattern: Normal: <= 5 Contractions in 10 Minutes (Joanna Clark RN) Resting Tone (Palpate): Relaxed (Joanna Clark RN) Monitor Mode: External US (Joanna Clark RN) Monitor Interventions for FHR: Ultrasound Adjusted (Joanna Clark RN) FHR Baseline Rate : 130 (Joanna Clark RN) FHR Baseline Changes: No Baseline Change (Joanna Clark, MASSIMO) Variability: Moderate 6-25 bpm (Joanna Clark RN) Accelerations: 15X15 (Joanna Clark RN) Decelerations: None (Joanna Clark RN) Pain Scale: 2 (Joanna Clark RN) Pain Presence: Intermittent (Joanna Clark RN) Pain Type: Contraction (Joanna Clark RN) Pain Location: Abdomen (Joanna Gage, RN) Pain Goal: 1 (Joanna Clark RN) Pain Relief Measures: Comfort Measures (Joanna Clark, MASSIMO) Pain Coping: Breathing Through Contractions (Joanna Clark, MASSIMO) Pitocin (milliunit): Pitocin Increased to (milliunits) @ (Annotations: 12) (Joanna Clark RN) LaborFlag: Labor (QS system process)
[2016-05-28] MEDS ORDERED: NALBUPHINE HCL INJ 10 MG/1 ML AMPULE ONE ×2 (19:40→19:43)
[2016-05-28] MEDS ORDERED: PROMETHAZINE HCL INJ 25 MG/1 ML VIAL ONE (19:40)
--- NOTE | 2016-05-28 20:01 | L&D Flow Sheet ---
LD Flowsheet Datetime Report Generated by CPN: 05/28/2016 20:00 Datetime: 05/28/2016 19:48 Level of Consciousness: Fully Conscious (Ariella Lattibeaudeir, RN) DTR's/Clonus: DTRs 2+; No Clonus (Ariella Lattibeaudeir, RN) Headache: Denies (Ariella Lattibeaudeir, RN) Breath Sounds, Left: Clear and Equal (Ariella Lattibeaudeir, RN) Breath Sounds, Right: Clear and Equal (Ariella Lattibeaudeir, RN) Nausea/Vomiting: Denies (Ariella Lattibeaudeir, RN) RUQ Epigastric Pain: Denies (Ariella Lattibeaudeir, RN) Pitocin (milliunit): Pitocin Remains (milliunits) @ (Ariella Lattibeaudeir, RN) Datetime: 05/28/2016 19:47 Analgesics/Sedatives: Nubain (mg) @ 10; Phenergan (mg) @ 12.5 ([facility] RN) Datetime: 05/28/2016 19:03 I/O Interventions: Up to BR (Joanna Clark RN) Datetime: 05/28/2016 19:01 Stage of : Labor (Joanna Clark RN) NBP Sys/Josefina/Mean (mmHg): 124 (QS system process) : 73 (QS system process) : 94 (QS system process) Pulse: 88 (QS system process) Respirations: 20 (Joanna Clark RN) LaborFlag: Labor (QS system process) Datetime: 05/28/2016 19:00 Monitor Mode: External (Joanna Haralson, RN) Frequency (min): 2-3 (Joanna Haralson, RN) Quality: Moderate (Joanna Haralson, RN) Duration (sec): 70-90 (Joanna Haralson, RN) Duration Criteria: Less than Two 120 Second Contractions (Joanna Haralson, RN) Pattern: Normal: <= 5 Contractions in 10 Minutes (Joanna Eduardo, RN) Resting Tone (Palpate): Relaxed (Joanna Eduardo, RN) Monitor Mode: External US (Joanna Rossard, RN) FHR Baseline Rate : 135 (Joanna Haralson, RN) FHR Baseline Changes: No Baseline Change (Joanna Haralson, RN) Variability: Moderate 6-25 bpm (Joanna Eduardo, RN) Accelerations: 15X15 (Joanna Haralson, RN) Decelerations: Late (Joanna Haralson, RN) Actions for Decelerations: Side to Side (Joanna Haralson, RN) Patient Position/Activity: Right Tilt; Low Fowlers (Joanna Eduardo, RN) Datetime: 05/28/2016 18:45 Monitor Mode: External (Joanna Clark, MASSIMO) Frequency (min): 2-2.5 (Joanna Clark, MASSIMO) Quality: Moderate (Joanna Clark, RN) Duration (sec): 60-90 (Joanna Clark, RN) Duration Criteria: Less than Two 120 Second Contractions (Joanna Clark, RN) Pattern: Normal: <= 5 Contractions in 10 Minutes (Joanna Clark, RN) Resting Tone (Palpate): Relaxed (Joanna Clark, MASSIMO) Monitor Mode: External US (Joanna Clark, RN) FHR Baseline Rate : 130 (Joanna Clark, RN) FHR Baseline Changes: No Baseline Change (Joanna Clark, MASSIMO) Variability: Moderate 6-25 bpm (Joanna Clark, RN) Accelerations: 15X15 (Joanna Clark, RN) Decelerations: None (Joanna Clark, RN) Pitocin (milliunit): Pitocin Remains (milliunits) @ (Annotations: 8) (Joanna Clark, MASSIMO) Datetime: 05/28/2016 18:31 Stage of : Labor (Joanna Clark, MASSIMO) NBP Sys/Josefina/Mean (mmHg): 133 (QS system process) : 72 (QS system process) : 97 (QS system process) Pulse: 87 (QS system process) Respirations: 16 (Joanna Clark RN) LaborFlag: Labor (QS system process) Datetime: 05/28/2016 18:30 Monitor Mode: External (Joanna Eduardo, RN) Frequency (min): 1.5-2.5 (Joanna Haralson, RN) Quality: Moderate (Joanna Haralson, RN) Duration (sec): 60-100 (Joanna Eduardo, RN) Duration Criteria: Less than Two 120 Second Contractions (Joanna Haralson, RN) Pattern: Normal: <= 5 Contractions in 10 Minutes (Joanna Eduardo, RN) Resting Tone (Palpate): Relaxed (Joanna Haralson, RN) Monitor Mode: External US (Joanna Eduardo, RN) FHR Baseline Rate : 135 (Joanna Haralson, RN) FHR Baseline Changes: No Baseline Change (Joanna Haralson, RN) Variability: Moderate 6-25 bpm (Joanna Eduardo, RN) Accelerations: 15X15 (Joanna Eduardo, RN) Decelerations: None (Joanna Eduardo, RN) Pitocin (milliunit): Pitocin Remains (milliunits) @ (Annotations: 8) (Joanna Haralson, RN) Datetime: 05/28/2016 18:29 Patient Position/Activity: Left Tilt; Low Fowlers (Joanna Haralson, RN) Datetime: 05/28/2016 18:16 Pitocin (milliunit): Pitocin Decreased to (milliunits) @ 8 (Joanna Clark, RN) Datetime: 05/28/2016 18:15 Monitor Mode: External (Joanna Clark RN) Frequency (min): 1-2 (Joanna Clark, MASSIMO) Quality: Moderate (Joanna Clark, RN) Duration (sec): 70-80 (Joanna Clark, RN) Duration Criteria: Less than Two 120 Second Contractions (Joanna Clark, RN) Pattern: Tachysystole: > 5 Contractions in 10 Minutes (Joanna Clark, RN) Resting Tone (Palpate): Relaxed (Joanna Clark, RN) Contraction Comments: Dr. Saini reviewed strip, pitocin infusion decreased (Joanna Clark, MASSIMO) Monitor Mode: External US (Joanna Clark RN) FHR Baseline Rate : 130 (Joanna Clark RN) FHR Baseline Changes: No Baseline Change (Joanna Clark, MASSIMO) Variability: Moderate 6-25 bpm (Joanna Clark, RN) Accelerations: 15X15 (Joanna Clark, RN) Decelerations: None (Joanna Clark RN) Datetime: 05/28/2016 18:14 Communication: Report Given to @ Dr. Saini (Joanna Clark RN) Communication Comments: Dr. Saini on unit, reviewed strip. Orders received to decrease pitocin (Joanna Clark RN) Datetime: 05/28/2016 18:01 Stage of : Labor (Joanna Clark RN) NBP Sys/Josefina/Mean (mmHg): 124 (QS system process) : 68 (QS system process) : 91 (QS system process) Pulse: 83 (QS system process) Respirations: 18 (oJanna Clark RN) Temperature (F): 98.0 (Joanna Clark RN) Temperature (C): 36.7 (QS system process) Temperature Route: Oral (Joanna Clark RN) Pain Scale: 3 (Joanna Clark RN) Pain Presence: Intermittent (Joanna Clark RN) Pain Type: Contraction (Joanna Clark RN) Pain Location: Abdomen (Joanna Clark RN) Pain Goal: 1 (Joanna Clark RN) Pain Relief Measures: Comfort Measures (Joanna Clark RN) Pain Coping: Breathing Through Contractions (Joanna Clark RN) Pain Assessment Comments: family support at bedside (Joanna Clark RN) LaborFlag: Labor (QS system process) Datetime: 05/28/2016 18:00 Monitor Mode: External (Joanna Clark RN) Frequency (min): 1.5-2 (Joanna Clark RN) Quality: Moderate (Joanna Clark RN) Duration (sec): 60-90 (Joanna Clark RN) Duration Criteria: Less than Two 120 Second Contractions (Joanna Clark RN) Pattern: Normal: <= 5 Contractions in 10 Minutes (Joanna Clark RN) Resting Tone (Palpate): Relaxed (Joanna Clark RN) Monitor Mode: External US (Joanna Clark RN) FHR Baseline Rate : 135 (Joanna Clark RN) FHR Baseline Changes: No Baseline Change (Joanna Clark RN) Variability: Moderate 6-25 bpm (Joanna Clark RN) Accelerations: 15X15 (Joanna Clark RN) Decelerations: None (Joanna Clark RN)
[2016-05-28] MEDS: DINOPROSTONE 10 MG VAGINAL INSERT.SR PV PRN ×2 (20:03→23:39)
--- NOTE | 2016-05-28 22:01 | L&D Flow Sheet ---
LD Flowsheet Datetime Report Generated by CPN: 05/28/2016 22:00 Datetime: 05/28/2016 21:31 NBP Sys/Josefina/Mean (mmHg): 140 (QS system process) : 76 (QS system process) : 101 (QS system process) Pulse: 110 (QS system process) LaborFlag: Labor (QS system process) Datetime: 05/28/2016 21:30 Monitor Mode: External (Ariella Rain, RN) Frequency (min): 1.5-2.5 (Ariella Lattibeaudeir, RN) Quality: Moderate (Ariella Lattibeaudeir, RN) Duration (sec): 50-80 (Ariella Lattibeaudeir, RN) Resting Tone (Palpate): Relaxed (Ariella Lattibeaudeir, RN) Monitor Mode: External US (Ariella Lattibeaudeir, RN) FHR Baseline Rate : 135 (Ariella Lattibeaudeir, RN) Variability: Moderate 6-25 bpm (Ariella Lattibeaudeir, RN) Accelerations: 15X15 (Ariella Lattibeaudeir, RN) Decelerations: Early (Ariella Lattibeaudeir, RN) Pitocin (milliunit): Pitocin Remains (milliunits) @ 8 (Ariella Lattibeaudeir, RN) Datetime: 05/28/2016 21:15 Monitor Mode: External (Ariella Lattibeaudeir, RN) Frequency (min): 1.5-2.5 (Ariella Lattibeaudeir, RN) Quality: Moderate (Ariella Lattibeaudeir, RN) Duration (sec): 50-70 (Ariella Lattibeaudeir, RN) Resting Tone (Palpate): Relaxed (Ariella Lattibeaudeir, RN) Monitor Mode: External US (Ariella Lattibeaudeir, RN) FHR Baseline Rate : 135 (Ariella Lattibeaudeir, RN) Variability: Moderate 6-25 bpm (Ariella Lattibeaudeir, RN) Accelerations: 15X15 (Ariella Lattibeaudeir, RN) Pitocin (milliunit): Pitocin Remains (milliunits) @ 8 (Ariella Lattibeaudeir, RN) Datetime: 05/28/2016 21:01 NBP Sys/Josefina/Mean (mmHg): 142 (QS system process) : 76 (QS system process) : 101 (QS system process) Pulse: 107 (QS system process) LaborFlag: Labor (QS system process) Datetime: 05/28/2016 21:00 Monitor Mode: External (Ariella Lattibeaudeir, RN) Frequency (min): 1.5-3.5 (Ariella Lattibeaudeir, RN) Quality: Moderate (Ariella Lattibeaudeir, RN) Duration (sec): 50-80 (Ariella Lattibeaudeir, RN) Resting Tone (Palpate): Relaxed (Ariella Lattibeaudeir, RN) Monitor Mode: External US (Ariella Lattibeaudeir, RN) FHR Baseline Rate : 135 (Ariella Lattibeaudeir, RN) Variability: Moderate 6-25 bpm (Ariella Lattibeaudeir, RN) Accelerations: 15X15 (Ariella Lattibeaudeir, RN) Decelerations: Early (Ariella Lattibeaudeir, RN) Pitocin (milliunit): Pitocin Remains (milliunits) @ 8 (Ariella Lattibeaudeir, RN) Datetime: 05/28/2016 20:45 Monitor Mode: External (Ariella Lattibeaudeir, RN) Frequency (min): 2-3 (Ariella Lattibeaudeir, RN) Quality: Moderate (Ariella Lattibeaudeir, RN) Duration (sec): 50-70 (Ariella Lattibeaudeir, RN) Resting Tone (Palpate): Relaxed (Ariella Lattibeaudeir, RN) Monitor Mode: External US (Ariella Lattibeaudeir, RN) FHR Baseline Rate : 135 (Ariella Lattibeaudeir, RN) Variability: Moderate 6-25 bpm (Ariella Lattibeaudeir, RN) Accelerations: 15X15 (Ariella Lattibeaudeir, RN) Decelerations: Early (Ariella Lattibeaudeir, RN) Pitocin (milliunit): Pitocin Remains (milliunits) @ 8 (Ariella Lattibeaudeir, RN) Datetime: 05/28/2016 20:31 NBP Sys/Josefina/Mean (mmHg): 132 (QS system process) : 84 (QS system process) : 101 (QS system process) Pulse: 111 (QS system process) LaborFlag: Labor (QS system process) Datetime: 05/28/2016 20:30 Monitor Mode: External (Ariella Lattibeaudeir, RN) Frequency (min): 2-3.5 (Ariella Lattibeaudeir, RN) Quality: Moderate (Ariella Lattibeaudeir, RN) Duration (sec): 50-70 (Ariella Lattibeaudeir, RN) Resting Tone (Palpate): Relaxed (Ariella Lattibeaudeir, RN) Monitor Mode: External US (Ariella Lattibeaudeir, RN) FHR Baseline Rate : 135 (Ariella Lattibeaudeir, RN) Variability: Moderate 6-25 bpm (Ariella Lattibeaudeir, RN) Accelerations: 15X15 (Ariella Lattibeaudeir, RN) Decelerations: Early (Ariella Lattibeaudeir, RN) Pitocin (milliunit): Pitocin Remains (milliunits) @ 8 (Ariella Lattibeaudeir, RN) Datetime: 05/28/2016 20:15 Monitor Mode: External (Ariella Lattibeaudeir, RN) Frequency (min): 1.5-4 (Ariella Lattibeaudeir, RN) Quality: Moderate (Ariella Lattibeaudeir, RN) Duration (sec): 50-70 (Ariella Lattibeaudeir, RN) Resting Tone (Palpate): Relaxed (Ariella Lattibeaudeir, RN) Monitor Mode: External US (Ariella Lattibeaudeir, RN) FHR Baseline Rate : 135 (Ariella Lattibeaudeir, RN) Variability: Moderate 6-25 bpm (Ariella Lattibeaudeir, RN) Accelerations: 15X15 (Ariella Lattibeaudeir, RN) Decelerations: Early (Ariella Lattibeaudeir, RN) Pitocin (milliunit): Pitocin Remains (milliunits) @ 8 (Ariella Lattibeaudeir, RN) Datetime: 05/28/2016 20:02 NBP Sys/Josefina/Mean (mmHg): 142 (QS system process) : 78 (QS system process) : 103 (QS system process) Pulse: 105 (QS system process) LaborFlag: Labor (QS system process) Datetime: 05/28/2016 20:00 Monitor Mode: External (Ariella Rodrigez RN) Frequency (min): 1.5-2.5 (Ariella Rodrigez RN) Quality: Moderate (Ariella Rodrigez RN) Duration (sec): 50-70 (Ariella Rodrigez RN) Resting Tone (Palpate): Relaxed (Ariella Rodrigez RN) Monitor Mode: External US (Ariella Rodrigez RN) Variability: Moderate 6-25 bpm (Ariella Rodrigez RN) Accelerations: 15X15 (Ariella Rodrigez RN) Decelerations: Early (Ariella Rodrigez RN) Pitocin (milliunit): Pitocin Remains (milliunits) @ 8 (Ariella Rodrigez RN)
[2016-05-29] MEDS ORDERED: IBUPROFEN 800 MG TABLET ONE (00:03)
[2016-05-29] MEDS ORDERED: DIBUCAINE 1% OINTMENT 28 GM TP PRN (01:03)
[2016-05-29] MEDS ORDERED: ACETAMINOPHEN WITH CODEINE #3 TABLET PO PRN ×2 (01:03)
[2016-05-29] MEDS ORDERED: MEASLES,MUMPS&RUBELLA VACC/PF 0.5 ML VIAL SUBCUT PRN (01:03)
[2016-05-29] MEDS ORDERED: OXYTOCIN/NORMAL SALINE 1,000 ML IV PRN (01:03)
[2016-05-29] MEDS ORDERED: ZOLPIDEM TARTRATE 5 MG TABLET PO PRN (01:03)
[2016-05-29] MEDS ORDERED: DIPH/PERTUSS(ACELL)/TETANUS VAC/PF 0.5 ML SYR (>=10YO) IM PRN (01:03)
[2016-05-29] MEDS ORDERED: BENZOCAINE/MENTHOL AEROSOL SPRAY 56 ML TOP PRN (01:03)
--- NOTE | 2016-05-29 01:12 | Admission Physical ---
Datetime Report Generated by CPN: 05/29/2016 01:12 CURRENT ADMISSION Chief Complaint: Signs/Symptoms Gestational HTN Indication for Induction: Gest. HTN/PreEclampsia/Eclampsia Admit Plan: Admit to Unit; Initiate Labor Induction Protocol ALLERGIES Medication Allergies: Yes Medication Allergies: Penicillins (05/28/2016) Food Allergies: denies Environmental Allergies: denies OBSTETRICAL HISTORY EDC: 05/29/2016 00:00 : 2 Para: 1 Term: 1 : 0 SAB: 0 IAB: 0 Ectopic: 0 Livin Cesareans: 0 VBACs: 0 Multiple Births: 0 Gestational Diabetes: No Rh Sensitization: No Incompetent Cervix: No MIN: No Infertility: No ART Treatment: No Uterine Anomaly: No IUGR: No Hx Previous C/S: No Macrosomia: No Hx Loss/Stillborn: No PIH: Yes Hx : No Placenta Previa/Abruption: No Depression/PP Depression: No PTL/PROM: No Post Hemorrhage: No Current Procedures: Ultrasound Obstetrical History Comments: GHTN this NVSD: 2011 at 42 weeks SEE RECORDS Alcohol: No Marijuana : No Cocaine: No Other Illicit Drugs: No Cigarettes: Never Smoker. [id number] MEDICAL HISTORY Diabetes: No Blood Transfusion: No Pulmonary Disease (Asthma, TB): No Breast Disease: No Hypertension: No [employer] Surgery: No Heart Disease: No Hosp/Surgery: No Autoimmune Disorder: No Anesthetic Complications: No Kidney Disease: No Abnormal Pap Smear: No Neuro/Epilepsy: No Psychiatric Disorders: No Other Medical Diseases: No Hepatitis/Liver Disease: No Significant Family History: No Varicosities/Phlebitis: No Trauma/Violence : No Thyroid Dysfunction: No INFECTIOUS HISTORY Gonorrhea: No Genital Herpes: No Chlamydia: No Tuberculosis: No Syphilis: No Hepatitis: No HIV/AIDS Exposure: No Rash or Viral Illness: No HPV: No PHYSICAL EXAM General: Normal HEENT: Normal Neurologic: Normal Thyroid: Normal Heart: Normal Lungs: Normal Breast: Normal Back: Normal Abdomen: Normal Genitourinary Exam: Normal Extremities: Normal DTRs: Normal Pelvic Type: Adequate Vital Signs: Reviewed VAGINAL EXAM Dilatation: 2 Effacement: 70 Station: 0 Contraction Comments: irregular MEMBRANES Membranes: Intact FETUS A EGA: 39.6 Monitoring: External US Accelerations: 15X15 Decelerations: None FHR Category: Category I Admit Comment: 31 yo admitted for IOL- gestational hypertension EDC 05/29/16 EGA 39.6 abdomen nontender FHTs reactive- 120s cat 1 efw- [address] Rodriguez 05/22/high posterior dtrs +1, no clonus denies headache, no ruq pain, - clonus cytotec 25 mcg po and 25 pv placed per RN plan of care reviewed with pt and family anticipate PLANS FOR LABOR AND DELIVERY Labor and Delivery: None Pain Management: Natural Feeding Preference: Breast Benefit of Breast Feed Discussed: Yes Circumcision: N/A INFORMED CONSENT Informed Consent Obtained: Vaginal Delivery; Risks, Benefits and Alternatives Discussed Assignment: Jenifer Saini MD Signature: with User ID: Peace : with User ID: Peace
--- NOTE | 2016-05-29 01:29 | Delivery Summary ---
Del Sum A-C Datetime Report Generated by CPN: 05/29/2016 01:28 ADMISSION DATA Chief Complaint: Signs/Symptoms Gestational HTN Indication for Induction: Gest. HTN/PreEclampsia/Eclampsia Admission Impression: Term, Intrauterine Admit Provider Comments: 31 yo admitted for IOL- gestational hypertension EDC 05/29/16 EGA 39.6 abdomen nontender FHTs reactive- 120s cat 1 efw- [address] Rodriguez 05/22/high posterior dtrs +1, no clonus denies headache, no ruq pain, - clonus cytotec 25 mcg po and 25 pv placed per RN plan of care reviewed with pt and family anticipate DELIVERY PERSONNEL Delivery Doctor:: Jenifer Saini MD Labor and Delivery Nurse:: Ariella Rodrigez RN Labor and Delivery Nurse:: Candice Gil RN Patient Resource Coordinator/DIVER TENDER: Melissa Del Rio, DIVER TENDER MATERNAL INFORMATION Delivery Anesthesia: Local Medications After Delivery: Pitocin Drip 20 Units/1000ml NSS; Cytotec 800mcg Per Rectum/Vagina Estimated Blood Loss (ml): 400 Maternal Complications: None Provider Comments: over 2nd deg perineal lac with repair. live female infant ap 8/9. spontaneous intact placenta 3vc. mild uterine atony given cytotec 800mcg pr. LABOR SUMMARY EDC: 05/29/2016 00:00 No. Babies in Womb: 1 Attempted: No Labor Anesthesia: IV Sedation LABOR INFORMATION Reason for Induction: Gestational Hypertension Onset of Labor: 05/28/2016 16:04 Complete Dilatation: 05/28/2016 22:35 Cervical Ripening Agents: Cytotec @ 800 MT Oxytocin: Induction Group B Beta Strep: Negative Antibiotics # of Doses: 0 Steroids Given: None Reason Steroids Not Administered: Not Applicable MEMBRANES Membranes Rupture Method: Artificial Rupture of Membranes: 05/28/2016 16:04 Length of Rupture (hr): 6.93 Amniotic Fluid Color: Clear Amniotic Fluid Amount: Moderate Amniotic Fluid Odor: Normal STAGES OF LABOR Stage 1 hr: 6 Stage 1 min: 31 Stage 2 hr: 0 Stage 2 min: 25 Stage 3 hr: 0 Stage 3 min: 4 Total Time in Labor hr: 7 Total Time in Labor min: 0 VAGINAL DELIVERY Episiotomy: None Laceration Extension: Second Degree Laceration Type: Perineal Laceration Repair: Yes Laceration Repair Note: 2nd deg perineal lac with repair 3-0 vicryl in usual fashion Sponge Count Correct: N/A Sharps Count Correct: Yes CSECTION DELIVERY Primary Indication: N/A Secondary Indication: N/A CSection Incidence: N/A Labor: N/A Elective: N/A CSection Incision: N/A BABY A INFORMATION Infant Delivery Date/Time: 05/28/2016 23:00 Method of Delivery: Vaginal Born in Route : No : N/A Forceps: N/A Vacuum Extraction: N/A Shoulder Dystocia : No PRESENTATION/POSITION BABY A Presentation: Cephalic Cephalic Presentation: Vertex Vertex Position: Right Occipital Anterior Breech Presentation: N/A PLACENTA INFORMATION BABY A Placenta Delivery Time : 05/28/2016 23:04 Placenta Method of Delivery: Spontaneous Placenta Status: Delivered SCORES BABY A Heart Rate 1 min: >100 bpm Resp Effort 1 min: Good Cry Reflex Irritability 1 min: Cough or Sneeze or Pulls Away Muscle Tone 1 min: Active Motion Color 1 min: Body [place], Extremities Blue Resuscitation Effort 1 min: Tactile Stimulation SCORE 1 MIN: 9 Heart Rate 5 min: >100 bpm Resp Effort 5 min: Good Cry Reflex Irritability 5 min: Cough or Sneeze or Pulls Away Muscle Tone 5 min: Active Motion Color 5 min: Body [place], Extremities Blue Resuscitation Effort 5 min: Tactile Stimulation SCORE 5 MIN: 9 INFANT INFORMATION BABY A Gestational Age at Delivery: 39.6 Gestational Status: Full Term- 39- 40.6 Weeks Infant Outcome : Liveborn Infant Condition : Stable Infant Sex: Female IDENTIFICATION BABY A Verification Date/Time: 05/28/2016 23:07 ID Band Number: [id number] Mother's Name Verified: Yes Infant RN Verifying : Hayley GoodmanAdrianMASSIMO alemanC Additional Verifying Personnel: Nanci Gil RN WEIGHT/LENGTH BABY A Infant Birthweight (gm): 2920 Weight (lb): 6 Infant Weight (oz): 7 Infant Length (in): 19.50 Length (cm): 49.53 CORD INFORMATION BABY A No. Cord Vessels: 3 Nuchal Cord : N/A Cord Blood Taken: Yes-For Eval (Mom's Blood Type - or O+) Infant Suction: Mouth; Nose ASSESSMENT BABY A Infant Complications: None Physical Findings at Delivery: Within Normal Limits Respirations: Appears Normal Skin to Skin: Yes Laborer Heading/ALS Called : No Infant Care By: Clarita Gil RN Transferred To: Remains with Mother BABY B INFORMATION : N/A SIGNATURES Signature: with User ID: [email or web address]
[2016-05-29] MEDS ORDERED: INFLUENZA ADLT QUAD (36MOS+) 2016-17 VAC 0.5 ML SYR IM PRN (01:51)
[2016-05-29] MEDS: IBUPROFEN 800 MG TABLET PO SCH ×3 (05:11→21:21)
[2016-05-29 06:52] LABS: HEMATOCRIT 28.6 % (36.0-47.0); HEMOGLOBIN 9.9 g/dL (12.0-15.5); HGB HCT DIFFERENCE 1.1; MEAN CORPUSCULAR HEMOGLOBIN 31.2 pg (27.0-33.4); MEAN CORPUSCULAR HGB CONC 34.7 g/dL (32.0-36.0); MEAN CORPUSCULAR VOLUME 90 fl (80-97); RED BLOOD COUNT 3.17 10^6/uL (3.72-5.28); RED CELL DISTRIBUTION WIDTH 13.9 % (11.5-14.0)
[2016-05-29 07:00] LABS: WHITE BLOOD COUNT 17.4 10^3/uL (4.0-10.5)
--- NOTE | 2016-05-29 07:01 | L&D Flow Sheet ---
LD Flowsheet Datetime Report Generated by CPN: 05/29/2016 07:00 Datetime: 05/29/2016 00:22 NBP Sys/Josefina/Mean (mmHg): 131 (QS system process) : 65 (QS system process) : 90 (QS system process) Pulse: 94 (QS system process) Datetime: 05/29/2016 00:07 NBP Sys/Josefina/Mean (mmHg): 139 (QS system process) : 71 (QS system process) : 98 (QS system process) Pulse: 91 (QS system process) Datetime: 05/29/2016 00:00 Pain Scale: 3 (Ariella Lattibeaude, ) Pain Presence: Constant (Ariella Lattibeaude, ) Pain Type: Pressure (Ariella Lattibeaudeir, ) Pain Location: Perineum ([facility] Pain Relief Measures: Comfort Measures ([facility], ) Datetime: 05/28/2016 23:53 NBP Sys/Josefina/Mean (mmHg): 135 (QS system process) : 66 (QS system process) : 94 (QS system process) Pulse: 89 (QS system process) Datetime: 05/28/2016 23:38 NBP Sys/Josefina/Mean (mmHg): 141 (QS system process) : 88 (QS system process) : 107 (QS system process) Pulse: 96 (QS system process) Datetime: 05/28/2016 23:22 Stage of : Recovery (Ariella Lattibeaudeir, RN) NBP Sys/Josefina/Mean (mmHg): 113 (QS system process) : 78 (QS system process) : 91 (QS system process) Pulse: 99 (QS system process) Datetime: 05/28/2016 23:15 Cervical Ripening Agents: Cytotec @ 800 IN (Ariella Lattibeaudeir, RN) Datetime: 05/28/2016 23:04 Stage 2 Comments: Spontaneous delivery of intact placenta. (Ariella Lattibeaudeir, RN) Datetime: 05/28/2016 23:01 NBP Sys/Josefina/Mean (mmHg): 136 (QS system process) : 73 (QS system process) : 99 (QS system process) Pulse: 115 (QS system process) LaborFlag: Labor (QS system process) Datetime: 05/28/2016 23:00 Stage 2 Comments: of viable female infant. (Ariella Lattibeaudeir, RN) Datetime: 05/28/2016 22:39 Communication Comments: Dr. Saini notified of pt being completely dilated. (Gemini Adrian, RN) Datetime: 05/28/2016 22:35 Dilatation (cm): 10.0 (Ariella Lattibmariela, RN) Effacement (%): 100 (Ariella Lattibmariela, RN) Station: 0 (Ariella Rodrigez, RN) Exam by: S. MASSIMO Rodrigez (Ariella Lattibmariela, RN) Vaginal Bleeding: Normal Show (Ariella Lattibeaudeir, RN) Datetime: 05/28/2016 22:31 NBP Sys/Josefina/Mean (mmHg): 130 (QS system process) : 72 (QS system process) : 94 (QS system process) Pulse: 93 (QS system process) LaborFlag: Labor (QS system process) Datetime: 05/28/2016 22:15 Monitor Mode: External (Ariella Lattibeaudeir, RN) Frequency (min): 1.5-3.5 (Ariella Lattibeaudeir, RN) Quality: Moderate (Ariella Lattibeaudeir, RN) Duration (sec): 50-70 (Ariella Lattibeaudeir, RN) Resting Tone (Palpate): Relaxed (Ariella Lattibeaudeir, RN) Monitor Mode: External US (Ariella Lattibeaudeir, RN) FHR Baseline Rate : 140 (Ariella Lattibeaudeir, RN) Variability: Moderate 6-25 bpm (Ariella Lattibeaudeir, RN) Accelerations: 15X15 (Ariella Lattibeaudeir, RN) Decelerations: Early (Ariella Lattibeaudeir, RN) Pitocin (milliunit): Pitocin Remains (milliunits) @ 8 (Ariella Lattibeaudeir, RN) Datetime: 05/28/2016 22:08 IV/Blood Work: New IV Bag Hung (Ariella Frenchir, RN) Datetime: 05/28/2016 22:05 Communication Comments: Pt states she feels pressure to push during her contractions. States this feeling goes away when contraction is over. Advised pt to continue to monitor this and let me know if/when this sensation stays whether she has a contraction or not. Pt verbalized understanding. (Ariella Frenchir, RN) Datetime: 05/28/2016 22:01 NBP Sys/Josefina/Mean (mmHg): 142 (QS system process) : 80 (QS system process) : 102 (QS system process) Pulse: 112 (QS system process) LaborFlag: Labor (QS system process) Datetime: 05/28/2016 22:00 Monitor Mode: External (Ariella Lattibeaudeir, RN) Frequency (min): 1.5-3 (Ariella Lattibeaudeir, RN) Quality: Moderate (Ariella Lattibeaudeir, RN) Duration (sec): 50-80 (Ariella Lattibeaudeir, RN) Resting Tone (Palpate): Relaxed (Ariella Lattibeaudeir, RN) Monitor Mode: External US (Ariella Lattibeaudeir, RN) FHR Baseline Rate : 135 (Ariella Lattibeaudeir, RN) Variability: Moderate 6-25 bpm (Ariella Lattibeaudeir, RN) Accelerations: 15X15 (Ariella Lattibeaudeir, RN) Decelerations: Early (Ariella Lattibeaudeir, RN) Pitocin (milliunit): Pitocin Remains (milliunits) @ 8 (Ariella Lattibeaudeir, RN) Datetime: 05/28/2016 21:45 Monitor Mode: External (Ariella Lattibeaudeir, RN) Frequency (min): 2-3 (Ariella Lattibeaudeir, RN) Quality: Moderate (Ariella Lattibeaudeir, RN) Duration (sec): 60-70 (Ariella Lattibeaudeir, RN) Resting Tone (Palpate): Relaxed (Ariella Lattibeaudeir, RN) Monitor Mode: External US (Ariella Lattibeaudeir, RN) FHR Baseline Rate : 135 (Ariella Lattibeaudeir, RN) Variability: Moderate 6-25 bpm (Ariella Lattibeaudeir, RN) Accelerations: 15X15 (Ariella Lattibeaudeir, RN) Decelerations: None (Ariella Lattibeaudeir, RN) Pitocin (milliunit): Pitocin Remains (milliunits) @ 8 (Ariella Lattibeaudeir, RN) Datetime: 05/28/2016 21:31 NBP Sys/Josefina/Mean (mmHg): 140 (QS system process) : 76 (QS system process) : 101 (QS system process) Pulse: 110 (QS system process) LaborFlag: Labor (QS system process) Datetime: 05/28/2016 21:30 Monitor Mode: External (Ariella Lattibeaudeir, RN) Frequency (min): 1.5-2.5 (Ariella Lattibeaudeir, RN) Quality: Moderate (Ariella Lattibeaudeir, RN) Duration (sec): 50-80 (Ariella Lattibeaudeir, RN) Resting Tone (Palpate): Relaxed (Ariella Lattibeaudeir, RN) Monitor Mode: External US (Ariella Lattibeaudeir, RN) FHR Baseline Rate : 135 (Ariella Lattibeaudeir, RN) Variability: Moderate 6-25 bpm (Ariella Lattibeaudeir, RN) Accelerations: 15X15 (Ariella Lattibeaudeir, RN) Decelerations: Early (Ariella Lattibeaudeir, RN) Pitocin (milliunit): Pitocin Remains (milliunits) @ 8 (Ariella Lattibeaudeir, RN) Datetime: 05/28/2016 21:15 Monitor Mode: External (Ariella Lattibeaudeir, RN) Frequency (min): 1.5-2.5 (Ariella Lattibeaudeir, RN) Quality: Moderate (Ariella Lattibeaudeir, RN) Duration (sec): 50-70 (Ariella Lattibeaudeir, RN) Resting Tone (Palpate): Relaxed (Ariella Lattibeaudeir, RN) Monitor Mode: External US (Ariella Lattibeaudeir, RN) FHR Baseline Rate : 135 (Ariella Lattibeaudeir, RN) Variability: Moderate 6-25 bpm (Ariella Lattibeaudeir, RN) Accelerations: 15X15 (Ariella Lattibeaudeir, RN) Pitocin (milliunit): Pitocin Remains (milliunits) @ 8 (Ariella Lattibeaudeir, RN) Datetime: 05/28/2016 21:01 NBP Sys/Josefina/Mean (mmHg): 142 (QS system process) : 76 (QS system process) : 101 (QS system process) Pulse: 107 (QS system process) LaborFlag: Labor (QS system process) Datetime: 05/28/2016 21:00 Monitor Mode: External (Ariella Lattibeaudeir, RN) Frequency (min): 1.5-3.5 (Ariella Lattibeaudeir, RN) Quality: Moderate (Ariella Lattibeaudeir, RN) Duration (sec): 50-80 (Ariella Lattibeaudeir, RN) Resting Tone (Palpate): Relaxed (Ariella Lattibeaudeir, RN) Monitor Mode: External US (Ariella Lattibeaudeir, RN) FHR Baseline Rate : 135 (Ariella Lattibeaudeir, RN) Variability: Moderate 6-25 bpm (Ariella Lattibeaudeir, RN) Accelerations: 15X15 (Ariella Lattibeaudeir, RN) Decelerations: Early (Ariella Lattibeaudeir, RN) Pitocin (milliunit): Pitocin Remains (milliunits) @ 8 (Ariella Lattibeaudeir, RN) Datetime: 05/28/2016 20:45 Monitor Mode: External (Ariella Lattibeaudeir, RN) Frequency (min): 2-3 (Ariella Lattibeaudeir, RN) Quality: Moderate (Ariella Lattibeaudeir, RN) Duration (sec): 50-70 (Ariella Lattibeaudeir, RN) Resting Tone (Palpate): Relaxed (Ariella Lattibeaudeir, RN) Monitor Mode: External US (Ariella Lattibeaudeir, RN) FHR Baseline Rate : 135 (Ariella Lattibeaudeir, RN) Variability: Moderate 6-25 bpm (Ariella Lattibeaudeir, RN) Accelerations: 15X15 (Ariella Lattibeaudeir, RN) Decelerations: Early (Ariella Lattibeaudeir, RN) Pitocin (milliunit): Pitocin Remains (milliunits) @ 8 (Ariella Lattibeaudeir, RN) Datetime: 05/28/2016 20:31 NBP Sys/Josefina/Mean (mmHg): 132 (QS system process) : 84 (QS system process) : 101 (QS system process) Pulse: 111 (QS system process) LaborFlag: Labor (QS system process) Datetime: 05/28/2016 20:30 Monitor Mode: External (Ariella Lattibeaudeir, RN) Frequency (min): 2-3.5 (Ariella Lattibeaudeir, RN) Quality: Moderate (Ariella Lattibeaudeir, RN) Duration (sec): 50-70 (Ariella Lattibeaudeir, RN) Resting Tone (Palpate): Relaxed (Ariella Lattibeaudeir, RN) Monitor Mode: External US (Ariella Lattibeaudeir, RN) FHR Baseline Rate : 135 (Ariella Lattibeaudeir, RN) Variability: Moderate 6-25 bpm (Ariella Lattibeaudeir, RN) Accelerations: 15X15 (Ariella Lattibeaudeir, RN) Decelerations: Early (Ariella Lattibeaudeir, RN) Pitocin (milliunit): Pitocin Remains (milliunits) @ 8 (Ariella Lattibeaudeir, RN) Datetime: 05/28/2016 20:15 Monitor Mode: External (Ariella Lattibeaudeir, RN) Frequency (min): 1.5-4 (Ariella Lattibeaudeir, RN) Quality: Moderate (Ariella Lattibeaudeir, RN) Duration (sec): 50-70 (Ariella Lattibeaudeir, RN) Resting Tone (Palpate): Relaxed (Ariella Lattibeaudeir, RN) Monitor Mode: External US (Ariella Lattibeaudeir, RN) FHR Baseline Rate : 135 (Ariella Lattibeaudeir, RN) Variability: Moderate 6-25 bpm (Ariella Lattibeaudeir, RN) Accelerations: 15X15 (Ariella Lattibeaudeir, RN) Decelerations: Early (Ariella Lattibeaudeir, RN) Pitocin (milliunit): Pitocin Remains (milliunits) @ 8 (Ariella Lattibeaudeir, RN) Datetime: 05/28/2016 20:02 NBP Sys/Josefina/Mean (mmHg): 142 (QS system process) : 78 (QS system process) : 103 (QS system process) Pulse: 105 (QS system process) LaborFlag: Labor (QS system process) Datetime: 05/28/2016 20:00 Monitor Mode: External (Ariella Lattibeaudeir, RN) Frequency (min): 1.5-2.5 (Ariella Lattibeaudeir, RN) Quality: Moderate (Ariella Lattibeaudeir, RN) Duration (sec): 50-70 (Ariella Lattibeaudeir, RN) Resting Tone (Palpate): Relaxed (Ariella Lattibeaudeir, RN) Monitor Mode: External US (Ariella Lattibeaudeir, RN) Variability: Moderate 6-25 bpm (Ariella Lattibeaudeir, RN) Accelerations: 15X15 (Ariella Lattibeaudeir, RN) Decelerations: Early (Ariella Lattibeaudeir, RN) Pitocin (milliunit): Pitocin Remains (milliunits) @ 8 (Ariella Lattibeaudeir, RN) Datetime: 05/28/2016 19:48 Level of Consciousness: Fully Conscious (Ariella Lattibeaudeir, RN) DTR's/Clonus: DTRs 2+; No Clonus (Ariella Lattibeaudeir, RN) Headache: Denies (Ariella Lattibeaudeir, RN) Breath Sounds, Left: Clear and Equal (Ariella Lattibeaudeir, RN) Breath Sounds, Right: Clear and Equal (Ariella Rodrigez, RN) Nausea/Vomiting: Denies (Ariella Rodrigez, MASSIMO) RUQ Epigastric Pain: Denies (Ariella Rodrigez RN) Pitocin (milliunit): Pitocin Remains (milliunits) @ (Ariella Lattibeaudeir, RN) Datetime: 05/28/2016 19:47 Analgesics/Sedatives: Nubain (mg) @ 10; Phenergan (mg) @ 12.5 (Ariella Lattibeaudeir, RN) Datetime: 05/28/2016 19:45 Monitor Mode: External (Ariella Rodrigez RN) Frequency (min): 2-3 (Ariella Rodrigez RN) Quality: Moderate (Ariella Rodrigez RN) Duration (sec): 50-70 (Ariella Rodrigez RN) Resting Tone (Palpate): Relaxed (Ariella Rodrigez RN) Monitor Mode: External US (Ariella Lattibeaudeir, RN) FHR Baseline Rate : 135 (Ariella Frenchir, RN) Variability: Moderate 6-25 bpm (Ariella Lattibeabassemir, RN) Pitocin (milliunit): Pitocin Remains (milliunits) @ 8 (Ariella Lattibchantellir, RN) Datetime: 05/28/2016 19:38 Pain Scale: 5 (Ariella Rodrigez RN) Pain Presence: Intermittent (Ariella Rodrigez RN) Pain Type: Contraction (Ariella Rodrigez RN) Pain Location: Abdomen (Ariella Rodrigez RN) Pain Coping: Breathing Through Contractions; Requesting Pain Medication or Epidural (Ariella Rodrigez RN) Comfort Measures: Breathing/Relaxation; Coaching; Family Support (Ariella Rodrigez RN) LaborFlag: Labor (QS system process) Datetime: 05/28/2016 19:37 Monitor Interventions for UA: [place] Adjusted (Ariella Rodrigez, RN) Datetime: 05/28/2016 19:30 Monitor Mode: Doppler (Ariella Lattibeaudeir, RN) FHR Baseline Rate : 135 (Ariella Lattibeaudeir, RN) Datetime: 05/28/2016 19:19 I/O Interventions: Up to BR (Ariella Lattibeaudeir, RN) Datetime: 05/28/2016 19:17 Dilatation (cm): 3.0 (Ariella Lattibeaudeir, RN) Effacement (%): 90 (Ariella Lattibeaudeir, RN) Station: -1 (Ariella Lattibeaudeir, RN) Exam by: Addi Rodrigez RN (Ariella Rodrigez, RN) Vaginal Exam Comments: Pt states feels like she needs to have BM, SVE done. (Ariella Rodrigez, RN) Datetime: 05/28/2016 19:15 Monitor Mode: External (Ariella Rodrigez, RN) Frequency (min): 1.5-2 (Ariella Rodrigez, RN) Quality: Moderate (Ariella Lattibeabassemir, RN) Duration (sec): 50-70 (Ariella Lattibeaudeir, RN) Resting Tone (Palpate): Relaxed (Ariella Turpinealisa, RN) Monitor Mode: External US (Ariella Rodrigez, RN) FHR Baseline Rate : 140 (Ariella Lattibeaudeir, RN) Variability: Moderate 6-25 bpm (Ariella Lattibeaudeir, RN) Accelerations: 15X15 (Ariella Lattibeaudeir, RN) Pitocin (milliunit): Pitocin Remains (milliunits) @ 8 (Ariella Lattibeaudeir, RN) Datetime: 05/28/2016 19:03 I/O Interventions: Up to BR (Joanna Clark, MASSIMO) Datetime: 05/28/2016 19:01 Stage of : Labor (Joanna Clark, MASSIMO) NBP Sys/Josefina/Mean (mmHg): 124 (QS system process) : 73 (QS system process) : 94 (QS system process) Pulse: 88 (QS system process) Respirations: 20 (Joanna Clark, MASSIMO) LaborFlag: Labor (QS system process) Datetime: 05/28/2016 19:00 Monitor Mode: External (Joanna Clark, RN) Frequency (min): 2-3 (Joanna Clark RN) Quality: Moderate (Joanna Clark RN) Duration (sec): 70-90 (Joanna Clark, RN) Duration Criteria: Less than Two 120 Second Contractions (Joanna Clark, RN) Pattern: Normal: <= 5 Contractions in 10 Minutes (Joanna Clark RN) Resting Tone (Palpate): Relaxed (Joanna Clark RN) Monitor Mode: External US (Joanna Clark RN) FHR Baseline Rate : 135 (Joanna Clark RN) FHR Baseline Changes: No Baseline Change (Joanna Clark RN) Variability: Moderate 6-25 bpm (Joanna Clark, MASSIMO) Accelerations: 15X15 (Joanna Clark, MASSIMO) Decelerations: Late (Joanna Clark, MASSIMO) Actions for Decelerations: Side to Side (Joanna Clark, MASSIMO) Patient Position/Activity: Right Tilt; Low Fowlers (Joanna Clark, MASSIMO)
[2016-05-29] MEDS: DOCUSATE SODIUM 100 MG CAPSULE PO SCH ×2 (09:22→17:47)
[2016-05-29] MEDS: SENNOSIDES/DOCUSATE 8.6-50 MG 1 EACH TABLET PO SCH (09:22)
[2016-05-29] MEDS: PRENATAL VITAMIN W-O CA NO5/FE FUMARATE/FA CAPSULE PO SCH (09:22)
[2016-05-29] MEDS: FERROUS SULFATE 325 MG TABLET PO SCH ×2 (09:22→17:47)
--- NOTE | 2016-05-29 10:49 | PDOC PROGRESS REPORT ---
Subjective-OB Subjective: Post Delivery Day: 31 year old. Denies any needs at this time. Baby under bili lights-opts to remain in hosp until baby is discharged. Physical Exam (OB) Vital Signs: Temp Pulse Resp BP Pulse Ox 98.0 F 85 17 122/67 100 05/29/16 08:34 05/29/16 08:34 05/29/16 08:34 05/29/16 08:34 05/29/16 08:34 Intake & Output 05/28/16 05/29/16 05/30/16 06:59 06:59 06:59 Weight 91.95 kg - Lochia Lochia Amount: Scant < 10 ml Lochia Color: Rubra/Red - Abdomen Description: Soft, Round Hernia Present: No Bowel Sounds: Normoactive Flatus Presence: Present Stool: No Fundal Description: Firm, Non-Midline Fundal Height: u/u - u/2 Objective-Diagnostic Laboratory: 05/29/16 06:41 05/28/16 06:57 05/29/16 06:41 WBC 17.4 H D RBC 3.17 L Hgb 9.9 L Hct 28.6 L MCV 90 MCH 31.2 MCHC 34.7 RDW 13.9 Plt Count 195
--- NOTE | 2016-05-29 18:01 | L&D Current Admission ---
Current Admit Datetime Report Generated by CPN: 05/29/2016 18:00 ADMISSION INFORMATION Current Admit Date/Time: 05/28/2016 06:30 (05/28/2016 08:24:Joanna Clark RN) Reason for Admission: Induction of Labor (05/28/2016 08:24:Joanna Clark RN) Chief Complaint: Scheduled Induction of Labor (05/28/2016 08:24:Joanna Clark RN) Medications During : Vitamin (05/28/2016 08:24:Joanna Clark RN) EGA per Dates: 39.6 (05/28/2016 08:24:QS system process) Method of Arrival: Ambulatory (05/28/2016 08:24:Joanna Clark RN) Admitted From: Home (05/28/2016 08:24:Joanna Clark RN) Reason for Induction: Gestational Hypertension (05/28/2016 08:24:Joanna Clark RN) Records Available: Yes (05/28/2016 08:24:Jaonna Clark RN) General Admission Information: Reviewed (05/28/2016 08:24:Joanna Clark RN) General Admission Reviewed By: Joanna Clark RN (05/28/2016 08:24:Joanna Clark RN) BELONGINGS/ADVANCED DIRECTIVES Valuables/Personal Effects: Purse/Wallet; Cell Phone; Eyeglasses (05/28/2016 08:24:Joanna Clark RN) Other Belongings: See [facility] belongings form (05/28/2016 08:24:Joanna Clark RN) Disposition of Belongings: Kept with Patient (05/28/2016 08:24:Joanna Clark RN) Advance Direct for Healthcare: No, and Wants No Information (05/28/2016 08:24:Joanna Clark RN) Durable Power of Him Specialists: No (05/28/2016 08:24:Joanna Clark RN) Living Will: No (05/28/2016 08:24:Joanna Clark RN) Organ Donor: Yes (05/28/2016 08:24:Joanna Clark RN) Pt Rights Information Given: Yes (05/28/2016 08:24:Joanna Clark RN) Pt Understands Pt Rights: Yes (05/28/2016 08:24:Joanna Clark RN) LEARNING ASSESSMENT Knowledge Level: Understands L_D Process; Understands Care Activities; Had Pre-Hospital Education; Understands Diagnosis (05/28/2016 08:24:Joanna Clark RN) Barriers to Learning: None (05/28/2016 08:24:Joanna Clark RN) Learning Readiness: Motivated (05/28/2016 08:24:Joanna Clark RN) Learns Best By: 1 to 1 Instruction (05/28/2016 08:24:Joanna Clark RN) Learning Needs: Labor and Delivery Process; Pain Management; Symptoms to Report; Treatment Plan; Medication; Diagnosis; Nutrition; Equipment; Care; Community Resources (05/28/2016 08:24:Joanna Clark RN) DOMESTIC VIOLANCE SCREENING Dom Viol Threatened/Hurt: No (05/28/2016 08:24:Joanna Clark RN) Hx of Abuse/Neglect past 2yrs: No (05/28/2016 08:24:Joanna Clark RN) Feel Unsafe Going Home: No (05/28/2016 08:24:Joanna Clark RN) Addt'l Observ Indicating Abuse: No (05/28/2016 08:24:Joanna Clark RN) Reason Unable to Complete Screen: N/A, Screen Completed (05/28/2016 08:24:Joanna Clark RN) Considered Personal Harm/Suicide: No (05/28/2016 08:24:Joanna Clark RN) NUTRITIONAL/FUNCTIONAL SCREENING Problem with Appetite >5 Days: No (05/28/2016 08:24:Joanna Clark RN) Chew/Swallow Difficulties: No (05/28/2016 08:24:Joanna Clark RN) Inappropriate Wt Gain/Loss: No (05/28/2016 08:24:Joanna Clark RN) Presence Skin Breakdown/Ulcer: No (05/28/2016 08:24:Joanna Clark RN) Special Diet: No (05/28/2016 08:24:Joanna Clark RN) Pt Requests Brazing Machine Operator Automatic Visit: No (05/28/2016 08:24:Joanna Clark RN) Hx of Any of the Following?: N/A (05/28/2016 08:24:Joanna Clark RN) New Diagnosis of: N/A (05/28/2016 08:24:Joanna Clark RN) Requires Assist w/Ambulation: No (05/28/2016 08:24:Joanna Clark RN) Uses Assist Device to Ambulate: No (05/28/2016 08:24:Joanna lCark RN) Pt Requires Help w/ADL's: No (05/28/2016 08:24:Joanna Clark RN)
--- NOTE | 2016-05-29 18:01 | L&D General Admission ---
General Admit Datetime Report Generated by CPN: 05/29/2016 18:00 INFORMATION Patient Age: 31 (05/28/2016 06:20:QS system process) EDC: 05/29/2016 00:00 (05/28/2016 06:40:Ariella Rodrigez RN) : 2 (05/28/2016 06:40:Ariella Rodrigez RN) Para: 1 (05/28/2016 06:40:Ariella Rodrigez RN) Term: 1 (05/28/2016 06:40:Ariella Rodrigez RN) : 0 (05/28/2016 06:40:Ariella Rodrigez RN) Spontaneous Abortions: 0 (05/28/2016 06:40:Ariella Rodrigez RN) Induced Abortions: 0 (05/28/2016 06:40:Ariella Rodrigez RN) Livin (05/28/2016 06:40:Ariella Rodrigez RN) Cesareans: 0 (05/28/2016 06:40:Areilla Rodrigez RN) VBACs: 0 (05/28/2016 06:40:Ariella Rodrigez RN) Ectopic: 0 (05/28/2016 06:40:Ariella Rodrigez RN) Multiple Births: 0 (05/28/2016 06:40:Ariella Rodrigez RN) Baby, Number in Womb: 1 (05/28/2016 06:40:Ariella Rodrigez RN) CARE Primary Vice President Of Talent Acquisition: [facility] (05/28/2016 06:40:Ariella Rodrigez RN) Month of 1st Visit: July 2015 (05/28/2016 06:40:Joanna Clark RN) Adequate Care: Yes (05/28/2016 06:40:Ariella Rodrigez RN) Prepregnancy Weight (lb): 165 (05/28/2016 06:40:Joanna Clark RN) Prepregnancy Weight (kg): 75.0 (05/28/2016 06:40:QS system process) Height (in): 64 (05/29/2016 16:12:QS system process) ALLERGIES Medication Allergy: Yes (05/28/2016 06:40:Ariella Rodrigez RN) Medication Allergies: Penicillins (05/28/2016) (05/28/2016 08:41:QS system process) Food Allergies: denies (05/28/2016 06:40:Joanna Clark RN) Environmental Allergies: denies (05/28/2016 06:40:Joanna Clark RN) COMMUNICATION Primary Language: Citizen Of [place] (05/28/2016 06:40:Ariella Rodrigez RN) Medical Tx Preferred Language: Citizen Of [place] (05/28/2016 06:40:Ariella Rodrigez RN) Communication Barrier(s): Language barrier (05/28/2016 06:40:Joanna Clark RN) DEMOGRAPHICS Address: [address] [place] [address] [address], [address] [place] [address] (05/28/2016 06:20:QS system process) Zipcode: [id number] (05/28/2016 06:20:QS system process) Home (05/28/2016 06:20:QS system process) SSN: [id number] (05/28/2016 06:20:QS system process) Next of Kin Name: QI FORBES (05/28/2016 06:20:QS system process) Next of Kin (05/28/2016 06:20:QS system process) Next of Kin Relationship: MO (05/28/2016 06:20:QS system process) Date of : 1985 (05/28/2016 06:20:QS system process) Marital Status: (05/28/2016 06:20:QS system process) Sex: Female (05/28/2016 06:20:QS system process) Race: (05/28/2016 06:20:QS system process) Ethnicity: Non- or (05/28/2016 06:20:QS system process) Muslim: None (05/28/2016 06:20:QS system process) DRUG AND ALCOHOL USE Alcohol: No (05/28/2016 06:40:Joanna Clark RN) Cigarettes: Never Smoker. [id number] (05/28/2016 06:40:Joanna Clark RN) Marijuana: No (05/28/2016 06:40:Joanna Clark RN) Cocaine: No (05/28/2016 06:40:Joanna Clark RN) Other Illicit Drugs: No (05/28/2016 06:40:Joanna Clark RN) VACCINE HISTORY Influenza Vaccine: No (05/28/2016 06:40:Joanna Clark RN) Pneumococcal Vaccine: No (05/28/2016 06:40:Joanna Clark RN) Tetanus Vaccine: Yes (05/28/2016 06:40:Joanna Clark RN) Tdap Vaccine: Yes (05/28/2016 06:40:Joanna Clark RN) Hepatitis B Vaccine: Yes (05/28/2016 06:40:Joanna Clark RN) Clipping Marker: [facility] (05/28/2016 06:40:Joanna Clark RN) Feeding Preference: Breast (05/28/2016 06:40:Joanna Clark RN) Benefit of Breast Feed Discussed: Yes (05/28/2016 06:40:Joanna Clark RN) Circumcision: N/A (05/28/2016 06:40:Joanna Clark RN) Tubal Ligation: No (05/28/2016 06:40:Joanna Clark RN) Tubal Authorization Signed: N/A (05/28/2016 06:40:Joanna Clark RN) Consent: N/A (05/28/2016 06:40:Joanna Clark RN) Consent Signed: N/A (05/28/2016 06:40:Joanna Clark RN) Pain Management Plans: Natural (05/28/2016 06:40:Joanna Clark RN) Plans for Labor and Delivery: None (05/28/2016 06:40:Joanna Clark RN) Support Person: Ta Patel (05/28/2016 06:40:Joanna Clark RN) Support Person Relationship: (05/28/2016 06:40:Joanna Clark RN) Cultural/Spritual Practice: Gina (05/28/2016 06:40:Joanna Clark RN) Spir/Cult Dietary Needs: No (05/28/2016 06:40:Joanna Clark RN) LIVING SITUATION/DISCHARGE PLAN Living Arrangements: Apartment (05/28/2016 06:40:Joanna Clark RN) Adequate Access to:: Electric; Heat; Refrigeration; Plumbing/Running water; Phone; Transportation (05/28/2016 06:40:Joanna Clark RN) WIC Program: Needs referral (05/28/2016 06:40:Joanna Clark RN) Discharge Plasma Processing Centrifuge Operator Person: Ta Patel (05/28/2016 06:40:Joanna Clark RN) Person to Help after Discharge: Ta Patel (05/28/2016 06:40:Joanna Clark RN) Currently Using Commun Resources: Gina (05/28/2016 06:40:Joanna Clark RN) Outside Agency/Organizational Effectiveness Director: [facility]ina (05/28/2016 06:40:Joanna Clark RN) Car Seat for Discharge: Yes (05/28/2016 06:40:Joanna Clark RN) Adoption Requested: No (05/28/2016 06:40:Joanna Clark RN) Pt Contact w/ Post : N/A (05/28/2016 06:40:Joanna Clark RN) LABS Blood Type: A Negative (05/28/2016 06:40:Ariella Rodrigez RN) Antibody Screen: Negative (05/28/2016 06:40:Ariella Rodrigez RN) Rho(G) this : Yes (05/28/2016 06:40:Ariella Rodrigez RN) Date Rho(G) Given: 03/06/16 (05/28/2016 06:40:Alexandro Hernandez RN) Hemoglobin: 9.9 L (05/29/2016 06:41:QS system process) Hematocrit: 28.6 L (05/29/2016 06:41:QS system process) MCV: 90 (05/29/2016 06:41:QS system process) Group Beta Strep: Negative (05/28/2016 06:40:Ariella Rodrigez RN) Gonorrhea: Negative (05/28/2016 06:40:Ariella Rodrigez RN) Chlamydia: Negative (05/28/2016 06:40:Ariella Rodrigez RN) RPR/VDRL: Nonreactive (05/28/2016 06:40:Ariella Rodrigez RN) HIV Results: Negative (05/28/2016 06:40:Ariella Rodrigez RN) Hepatitis B: Negative (05/28/2016 06:40:Ariella Rodrigez RN) Rubella: Immune (05/28/2016 06:40:Ariella Rodrigez RN) Varicella: Non Susceptible (05/28/2016 06:40:Ariella Rodrigez RN) OB/PREVIOUS HISTORY Previous Procedures: Ultrasound (05/28/2016 06:40:Joanna Clark RN) Current Procedures: Ultrasound (05/28/2016 06:40:Joanna Clark RN) History of Previous : No (05/28/2016 06:40:Joanna Clark RN) History of Gestational Diabetes: No (05/28/2016 06:40:Joanna Clark RN) History of PIH: Yes (05/28/2016 06:40:Joanna Clark RN) History of Incompetent Cervix: No (05/28/2016 06:40:Joanna Clark RN) History of Placenta Previa/Abrup: No (05/28/2016 06:40:Joanna Clark RN) History of Macrosomia: No (05/28/2016 06:40:Joanna Clark RN) History of IUGR: No (05/28/2016 06:40:Joanna Clark RN) History of Hemorrhage: No (05/28/2016 06:40:Joanna Clark RN) History of Loss/Stillborn: No (05/28/2016 06:40:Joanna Clark RN) History of : No (05/28/2016 06:40:Joanna Clark RN) History of D (Rh) Sensitization: No (05/28/2016 06:40:Joanna Clark RN) History Recurrent Loss/Stillborn: No (05/28/2016 06:40:Joanna Clark RN) History Depression/PP Depression: No (05/28/2016 06:40:Joanna Clark RN) History of Uterine Anomaly/MIN: No (05/28/2016 06:40:Joanna Clark RN) History of Infertility: No (05/28/2016 06:40:Joanna Clark RN) History of ART Treatment: No (05/28/2016 06:40:Joanna Clark RN) History of MIN: No (05/28/2016 06:40:Joanna Clark RN) Comments Obstetrical History: GHTN this NVSD: 2011 at 42 weeks (05/28/2016 06:40:Joanna Clark RN) MEDICAL HISTORY Med Hx Diabetes: No (05/28/2016 06:40:Joanna Clark RN) Med Hx Hypertension: No (05/28/2016 06:40:Joanna Clark RN) Med Hx Heart Disease: No (05/28/2016 06:40:Joanna Clark RN) Med Hx Autoimmune Disorder: No (05/28/2016 06:40:Joanna Clark RN) Med Hx Kidney Disease/UTI: No (05/28/2016 06:40:Joanna Clark RN) Med Hx Neurologic/Epilepsy: No (05/28/2016 06:40:Joanna Clark RN) Med Hx Psychiatric Disorders: No (05/28/2016 06:40:Joanna Clark RN) Med Hx Hepatitis/Liver Disease: No (05/28/2016 06:40:Joanna Clark RN) Med Hx Varicosities/Phlebitis: No (05/28/2016 06:40:Joanna Clark RN) Med Hx Thyroid Dysfunction: No (05/28/2016 06:40:Joanna Clark RN) Med Hx Trauma/Violence: No (05/28/2016 06:40:Joanna Clark RN) Med Hx Blood Transfusion: No (05/28/2016 06:40:Joanna Clark RN) Med Hx Pulmonary (Asthma,TB): No (05/28/2016 06:40:Joanna Clark RN) Med Hx Breast: No (05/28/2016 06:40:Joanna Clark RN) Med Hx LABORATORY SAMPLER Surgery: No (05/28/2016 06:40:Joanna Clark RN) Med Hx Hospitalization/Surgery: No (05/28/2016 06:40:Joanna Clark RN) Med Hx Anesthetic Complications: No (05/28/2016 06:40:Joanna Clark RN) Med Hx Abnormal Pap Smear: No (05/28/2016 06:40:Joanna Clark RN) Other Medical Diseases: No (05/28/2016 06:40:Joanna Clark RN) Med Hx Significant Family Hx: No (05/28/2016 06:40:Joanna Clark RN) INFECTIOUS HISTORY Inf Hx Gonorrhea: No (05/28/2016 06:40:Joanna Clark RN) Inf Hx Chlamydia: No (05/28/2016 06:40:Joanna Clark RN) Inf Hx Syphilis: No (05/28/2016 06:40:Joanna Clark RN) Inf Hx HIV/AIDS: No (05/28/2016 06:40:Joanna Clark RN) Inf Hx Human Papilloma Virus: No (05/28/2016 06:40:Joanna Clark RN) Inf Hx Pt/Partner Genital Herpes: No (05/28/2016 06:40:Joanna Clark RN) Inf Hx Tuberculosis/Exposure: No (05/28/2016 06:40:Joanna Clark RN) Inf Hx Hepatitis B,C: No (05/28/2016 06:40:Joanna Clark RN) Inf Hx Rash or Viral Illness: No (05/28/2016 06:40:Joanna Clark RN) GENETIC HISTORY Gen Hx Age >=35 at QUINN: No (05/28/2016 06:40:Joanna Clark RN) Gen Hx Thalassemia: No (05/28/2016 06:40:Joanna Clark RN) Gen Hx Congenital Heart Defect: No (05/28/2016 06:40:Joanna Clark RN) Gen Hx Neural Tube Defect: No (05/28/2016 06:40:Joanna Clark RN) Gen Hx Down's Syndrome: No (05/28/2016 06:40:Joanna Clark RN) Gen Hx Lazaro-Sachs: No (05/28/2016 06:40:Joanna Clark RN) Gen Hx Veena: No (05/28/2016 06:40:Jaonna Clark RN) Gen Hx Familial Dysautonomia: No (05/28/2016 06:40:Joanna Clark RN) Gen Hx Sickle Cell Disease/Trait: No (05/28/2016 06:40:Joanna Clark RN) Gen Hx Hemophilia/Blood Disorder: No (05/28/2016 06:40:Joanna Clark RN) Gen Hx Muscular Dystrophy: No (05/28/2016 06:40:Joanna Clark RN) Gen Hx Cystic Fibrosis: No (05/28/2016 06:40:Joanna Clark RN) Gen Hx [place] Chorea: No (05/28/2016 06:40:Joanna Clark RN) Gen Hx Mental Retardation/Autism: No (05/28/2016 06:40:Joanna Clark RN) Gen Hx Tested for Fragile X: No (05/28/2016 06:40:Joanna Clark RN) Gen Hx Other Inher/Chromosomal: No (05/28/2016 06:40:Joanna Clark RN) Gen Hx Maternal Metabolic DO: No (05/28/2016 06:40:Joanna Clark RN) Gen Hx Pt Father or FOB Defect: No (05/28/2016 06:40:Joanna Clark RN) Gen Hx Other Genetic History: No (05/28/2016 06:40:Joanna Clark RN) Gen Hx Drugs/Meds since LMP: No (05/28/2016 06:40:Joanna Clark RN) Details of Genetic History: Father of baby with history of epilepsy (05/28/2016 06:40:Joanna Clark RN)
--- NOTE | 2016-05-30 06:01 | L&D General Admission ---
General Admit Datetime Report Generated by CPN: 05/30/2016 06:00 INFORMATION Patient Age: 31 (05/28/2016 06:20:QS system process) EDC: 05/29/2016 00:00 (05/28/2016 06:40:Ariella Rodrigez RN) : 2 (05/28/2016 06:40:Ariella Rodrigez RN) Para: 1 (05/28/2016 06:40:Ariella Rodrigez RN) Term: 1 (05/28/2016 06:40:Ariella Rodrigez RN) : 0 (05/28/2016 06:40:Ariella Rodrigez RN) Spontaneous Abortions: 0 (05/28/2016 06:40:Ariella Rodrigez RN) Induced Abortions: 0 (05/28/2016 06:40:Ariella Rodrigez RN) Livin (05/28/2016 06:40:Ariella Rodrigez RN) Cesareans: 0 (05/28/2016 06:40:Ariella Rodrigez RN) VBACs: 0 (05/28/2016 06:40:Ariella Rodrigez RN) Ectopic: 0 (05/28/2016 06:40:Ariella Rodrigez RN) Multiple Births: 0 (05/28/2016 06:40:Ariella Rodrigez RN) Baby, Number in Womb: 1 (05/28/2016 06:40:Ariella Rodrigez RN) CARE Primary Wire Stitcher Operator: [facility] (05/28/2016 06:40:Ariella Rodrigez RN) Month of 1st Visit: July 2015 (05/28/2016 06:40:Joanna Clark RN) Adequate Care: Yes (05/28/2016 06:40:Ariella Rodrigez RN) Prepregnancy Weight (lb): 165 (05/28/2016 06:40:Joanna Clark RN) Prepregnancy Weight (kg): 75.0 (05/28/2016 06:40:QS system process) Height (in): 64 (05/29/2016 16:12:QS system process) ALLERGIES Medication Allergy: Yes (05/28/2016 06:40:Ariella Rodrigez RN) Medication Allergies: Penicillins (05/28/2016) (05/28/2016 08:41:QS system process) Food Allergies: denies (05/28/2016 06:40:Joanna Clark RN) Environmental Allergies: denies (05/28/2016 06:40:Joanna Clark RN) COMMUNICATION Primary Language: Macanese (05/28/2016 06:40:Ariella Rodrigez RN) Medical Tx Preferred Language: Macanese (05/28/2016 06:40:Ariella Rodrigez RN) Communication Barrier(s): Language barrier (05/28/2016 06:40:Joanna Clark RN) DEMOGRAPHICS Address: [address] [place] [address] [address], [address] [place] [address] (05/28/2016 06:20:QS system process) Zipcode: [address] (05/28/2016 06:20:QS system process) Home (05/28/2016 06:20:QS system process) SSN: [id number] (05/28/2016 06:20:QS system process) Next of Kin Name: QI FORBES (05/28/2016 06:20:QS system process) Next of Kin (05/28/2016 06:20:QS system process) Next of Kin Relationship: MO (05/28/2016 06:20:QS system process) Date of : 1985 (05/28/2016 06:20:QS system process) Marital Status: (05/28/2016 06:20:QS system process) Sex: Female (05/28/2016 06:20:QS system process) Race: (05/28/2016 06:20:QS system process) Ethnicity: Non- or (05/28/2016 06:20:QS system process) Amish: None (05/28/2016 06:20:QS system process) DRUG AND ALCOHOL USE Alcohol: No (05/28/2016 06:40:Joanna Clark RN) Cigarettes: Never Smoker. [id number] (05/28/2016 06:40:Joanna Clark RN) Marijuana: No (05/28/2016 06:40:Joanna Clark RN) Cocaine: No (05/28/2016 06:40:Joanna Clark RN) Other Illicit Drugs: No (05/28/2016 06:40:Joanna Clark RN) VACCINE HISTORY Influenza Vaccine: No (05/28/2016 06:40:Joanna Clark RN) Pneumococcal Vaccine: No (05/28/2016 06:40:Joanna Clark RN) Tetanus Vaccine: Yes (05/28/2016 06:40:Joanna Clark RN) Tdap Vaccine: Yes (05/28/2016 06:40:Joanna Clark RN) Hepatitis B Vaccine: Yes (05/28/2016 06:40:Joanna Clark RN) Senior Specialist: [facility] (05/28/2016 06:40:Joanna Clark RN) Feeding Preference: Breast (05/28/2016 06:40:Joanna Clark RN) Benefit of Breast Feed Discussed: Yes (05/28/2016 06:40:Joanna Clark RN) Circumcision: N/A (05/28/2016 06:40:Joanna Clark RN) Tubal Ligation: No (05/28/2016 06:40:Joanna Clark RN) Tubal Authorization Signed: N/A (05/28/2016 06:40:Joanna Clark RN) Consent: N/A (05/28/2016 06:40:Joanna Clark RN) Consent Signed: N/A (05/28/2016 06:40:Joanna Clark RN) Pain Management Plans: Natural (05/28/2016 06:40:Joanna Clark RN) Plans for Labor and Delivery: None (05/28/2016 06:40:Joanna Clark RN) Support Person: Ta Patel (05/28/2016 06:40:Joanna Clark RN) Support Person Relationship: (05/28/2016 06:40:Joanna Clark RN) Cultural/Spritual Practice: [facility] (05/28/2016 06:40:Joanna Clark RN) Spir/Cult Dietary Needs: No (05/28/2016 06:40:oJanna Clark RN) LIVING SITUATION/DISCHARGE PLAN Living Arrangements: Apartment (05/28/2016 06:40:Joanna Clark RN) Adequate Access to:: Electric; Heat; Refrigeration; Plumbing/Running water; Phone; Transportation (05/28/2016 06:40:Joanna Clark RN) WIC Program: Needs referral (05/28/2016 06:40:Joanna Clark RN) Discharge Phlebotomy Manager Person: Ta Patel (05/28/2016 06:40:Joanna Clark RN) Person to Help after Discharge: Ta Patel (05/28/2016 06:40:Joanna Clark RN) Currently Using Commun Resources: Gina (05/28/2016 06:40:Joanna Clark RN) Outside Agency/Water Quality Tester: [facility] (05/28/2016 06:40:Joanna Clark RN) Car Seat for Discharge: Yes (05/28/2016 06:40:Joanna Clark RN) Adoption Requested: No (05/28/2016 06:40:Joanna Clark RN) Pt Contact w/ Post : N/A (05/28/2016 06:40:Joanna Clark RN) LABS Blood Type: A Negative (05/28/2016 06:40:Ariella Rodrigez RN) Antibody Screen: Negative (05/28/2016 06:40:Ariella Rodrigez RN) Rho(G) this : Yes (05/28/2016 06:40:Ariella Rodrigez RN) Date Rho(G) Given: 03/06/16 (05/28/2016 06:40:Alexandro Hernandez RN) Hemoglobin: 9.9 L (05/29/2016 06:41:QS system process) Hematocrit: 28.6 L (05/29/2016 06:41:QS system process) MCV: 90 (05/29/2016 06:41:QS system process) Group Beta Strep: Negative (05/28/2016 06:40:Ariella Rodrigez RN) Gonorrhea: Negative (05/28/2016 06:40:Ariella Rodrigez RN) Chlamydia: Negative (05/28/2016 06:40:Ariella Rodrigez RN) RPR/VDRL: Nonreactive (05/28/2016 06:40:Ariella Rodrigez RN) HIV Results: Negative (05/28/2016 06:40:Ariella Rodrigez RN) Hepatitis B: Negative (05/28/2016 06:40:Ariella Rodrigez RN) Rubella: Immune (05/28/2016 06:40:Ariella Rodrigez RN) Varicella: Non Susceptible (05/28/2016 06:40:Ariella Rodrigez RN) OB/PREVIOUS HISTORY Previous Procedures: Ultrasound (05/28/2016 06:40:Joanna Clark RN) Current Procedures: Ultrasound (05/28/2016 06:40:Joanna Clark RN) History of Previous : No (05/28/2016 06:40:Joanna Clark RN) History of Gestational Diabetes: No (05/28/2016 06:40:Joanna Clark RN) History of PIH: Yes (05/28/2016 06:40:Joanna Clark RN) History of Incompetent Cervix: No (05/28/2016 06:40:Joanna Clark RN) History of Placenta Previa/Abrup: No (05/28/2016 06:40:Joanna Clark RN) History of Macrosomia: No (05/28/2016 06:40:Joanna Clark RN) History of IUGR: No (05/28/2016 06:40:Joanna Clark RN) History of Hemorrhage: No (05/28/2016 06:40:Joanna Clark RN) History of Loss/Stillborn: No (05/28/2016 06:40:Joanna Clark RN) History of : No (05/28/2016 06:40:Joanna Clark RN) History of D (Rh) Sensitization: No (05/28/2016 06:40:Joanna Clark RN) History Recurrent Loss/Stillborn: No (05/28/2016 06:40:Joanna Clark RN) History Depression/PP Depression: No (05/28/2016 06:40:Joanna Clark RN) History of Uterine Anomaly/MIN: No (05/28/2016 06:40:Joanna Clark RN) History of Infertility: No (05/28/2016 06:40:Joanna Clark RN) History of ART Treatment: No (05/28/2016 06:40:Joanna Clark RN) History of MIN: No (05/28/2016 06:40:Joanna Clark RN) Comments Obstetrical History: GHTN this NVSD: 2011 at 42 weeks (05/28/2016 06:40:Joanna Clark RN) MEDICAL HISTORY Med Hx Diabetes: No (05/28/2016 06:40:Joanna Clark RN) Med Hx Hypertension: No (05/28/2016 06:40:Joanna Clark RN) Med Hx Heart Disease: No (05/28/2016 06:40:Joanna Clark RN) Med Hx Autoimmune Disorder: No (05/28/2016 06:40:Joanna Clark RN) Med Hx Kidney Disease/UTI: No (05/28/2016 06:40:Joanna Clark RN) Med Hx Neurologic/Epilepsy: No (05/28/2016 06:40:Joanna Clark RN) Med Hx Psychiatric Disorders: No (05/28/2016 06:40:Joanna Clark RN) Med Hx Hepatitis/Liver Disease: No (05/28/2016 06:40:Joanna Clark RN) Med Hx Varicosities/Phlebitis: No (05/28/2016 06:40:Joanna Clark RN) Med Hx Thyroid Dysfunction: No (05/28/2016 06:40:Joanna Clark RN) Med Hx Trauma/Violence: No (05/28/2016 06:40:Joanna Clark RN) Med Hx Blood Transfusion: No (05/28/2016 06:40:Joanna Clark RN) Med Hx Pulmonary (Asthma,TB): No (05/28/2016 06:40:Joanna Clark RN) Med Hx Breast: No (05/28/2016 06:40:Joanna Clark RN) Med Hx INTERNAL MEDICINE HOSPITALIST Surgery: No (05/28/2016 06:40:Joanna Clark RN) Med Hx Hospitalization/Surgery: No (05/28/2016 06:40:Joanna Clark RN) Med Hx Anesthetic Complications: No (05/28/2016 06:40:Joanna Clark RN) Med Hx Abnormal Pap Smear: No (05/28/2016 06:40:Joanna Clark RN) Other Medical Diseases: No (05/28/2016 06:40:Joanna Clark RN) Med Hx Significant Family Hx: No (05/28/2016 06:40:Joanna Clark RN) INFECTIOUS HISTORY Inf Hx Gonorrhea: No (05/28/2016 06:40:Joanna Clark RN) Inf Hx Chlamydia: No (05/28/2016 06:40:Joanna Clark RN) Inf Hx Syphilis: No (05/28/2016 06:40:Joanna Clark RN) Inf Hx HIV/AIDS: No (05/28/2016 06:40:Joanna Clark RN) Inf Hx Human Papilloma Virus: No (05/28/2016 06:40:Joanna Clark RN) Inf Hx Pt/Partner Genital Herpes: No (05/28/2016 06:40:Joanna Clark RN) Inf Hx Tuberculosis/Exposure: No (05/28/2016 06:40:Joanna Clark RN) Inf Hx Hepatitis B,C: No (05/28/2016 06:40:Joanna Clark RN) Inf Hx Rash or Viral Illness: No (05/28/2016 06:40:Joanna Clark RN) GENETIC HISTORY Gen Hx Age >=35 at QUINN: No (05/28/2016 06:40:Joanna Clark RN) Gen Hx Thalassemia: No (05/28/2016 06:40:Joanna Clark RN) Gen Hx Congenital Heart Defect: No (05/28/2016 06:40:Joanna Clark RN) Gen Hx Neural Tube Defect: No (05/28/2016 06:40:Joanna Clark RN) Gen Hx Down's Syndrome: No (05/28/2016 06:40:Joanna Clark RN) Gen Hx Lazaro-Sachs: No (05/28/2016 06:40:Joanna Clark RN) Gen Hx Veena: No (05/28/2016 06:40:Joanna Clark RN) Gen Hx Familial Dysautonomia: No (05/28/2016 06:40:Joanna Clark RN) Gen Hx Sickle Cell Disease/Trait: No (05/28/2016 06:40:Joanna Clark RN) Gen Hx Hemophilia/Blood Disorder: No (05/28/2016 06:40:Joanna Clark RN) Gen Hx Muscular Dystrophy: No (05/28/2016 06:40:Joanna Clark RN) Gen Hx Cystic Fibrosis: No (05/28/2016 06:40:Joanna Clark RN) Gen Hx [place] Chorea: No (05/28/2016 06:40:Joanna Clark RN) Gen Hx Mental Retardation/Autism: No (05/28/2016 06:40:Joanna Clark RN) Gen Hx Tested for Fragile X: No (05/28/2016 06:40:Joanna Clark RN) Gen Hx Other Inher/Chromosomal: No (05/28/2016 06:40:Joanna Clark RN) Gen Hx Maternal Metabolic DO: No (05/28/2016 06:40:Joanna Clark RN) Gen Hx Pt Father or FOB Defect: No (05/28/2016 06:40:Joanna Clark RN) Gen Hx Other Genetic History: No (05/28/2016 06:40:Joanna Clark RN) Gen Hx Drugs/Meds since LMP: No (05/28/2016 06:40:Joanna Clark RN) Details of Genetic History: Father of baby with history of epilepsy (05/28/2016 06:40:Joanna Clark RN)
--- NOTE | 2016-05-30 06:01 | L&D Current Admission ---
Current Admit Datetime Report Generated by CPN: 05/30/2016 06:00 ADMISSION INFORMATION Current Admit Date/Time: 05/28/2016 06:30 (05/28/2016 08:24:Joanna Clark RN) Reason for Admission: Induction of Labor (05/28/2016 08:24:Joanna Clark RN) Chief Complaint: Scheduled Induction of Labor (05/28/2016 08:24:Joanna Clakr RN) Medications During : Vitamin (05/28/2016 08:24:Joanna Clark RN) EGA per Dates: 39.6 (05/28/2016 08:24:QS system process) Method of Arrival: Ambulatory (05/28/2016 08:24:Joanna Clark RN) Admitted From: Home (05/28/2016 08:24:Joanna Clark RN) Reason for Induction: Gestational Hypertension (05/28/2016 08:24:Joanna Clark RN) Records Available: Yes (05/28/2016 08:24:Joanna Clark RN) General Admission Information: Reviewed (05/28/2016 08:24:Joanna Clark RN) General Admission Reviewed By: Joanna Clark RN (05/28/2016 08:24:Joanna Clark RN) BELONGINGS/ADVANCED DIRECTIVES Valuables/Personal Effects: Purse/Wallet; Cell Phone; Eyeglasses (05/28/2016 08:24:Joanna Clark RN) Other Belongings: See [facility] belongings form (05/28/2016 08:24:Joanna Clark RN) Disposition of Belongings: Kept with Patient (05/28/2016 08:24:Joanna Clark RN) Advance Direct for Healthcare: No, and Wants No Information (05/28/2016 08:24:Joanna Clark RN) Durable Power of Pharmacist Manager: No (05/28/2016 08:24:Joanna Clark RN) Living Will: No (05/28/2016 08:24:Joanna Clark RN) Organ Donor: Yes (05/28/2016 08:24:Joanna Clark RN) Pt Rights Information Given: Yes (05/28/2016 08:24:Joanna Clark RN) Pt Understands Pt Rights: Yes (05/28/2016 08:24:Joanna Clark RN) LEARNING ASSESSMENT Knowledge Level: Understands L_D Process; Understands Care Activities; Had Pre-Hospital Education; Understands Diagnosis (05/28/2016 08:24:Joanna Clark RN) Barriers to Learning: None (05/28/2016 08:24:Joanna Clark RN) Learning Readiness: Motivated (05/28/2016 08:24:Joanna Clark RN) Learns Best By: 1 to 1 Instruction (05/28/2016 08:24:Joanna Clark RN) Learning Needs: Labor and Delivery Process; Pain Management; Symptoms to Report; Treatment Plan; Medication; Diagnosis; Nutrition; Equipment; Care; Community Resources (05/28/2016 08:24:Joanna Clark RN) DOMESTIC VIOLANCE SCREENING Dom Viol Threatened/Hurt: No (05/28/2016 08:24:Joanna Clark RN) Hx of Abuse/Neglect past 2yrs: No (05/28/2016 08:24:Joanna Clark RN) Feel Unsafe Going Home: No (05/28/2016 08:24:Joanna Clark RN) Addt'l Observ Indicating Abuse: No (05/28/2016 08:24:Joanna Clark RN) Reason Unable to Complete Screen: N/A, Screen Completed (05/28/2016 08:24:Joanna Clark RN) Considered Personal Harm/Suicide: No (05/28/2016 08:24:Joanna Clark RN) NUTRITIONAL/FUNCTIONAL SCREENING Problem with Appetite >5 Days: No (05/28/2016 08:24:Joanna Clark RN) Chew/Swallow Difficulties: No (05/28/2016 08:24:Joanna Clark RN) Inappropriate Wt Gain/Loss: No (05/28/2016 08:24:Joanna Clark RN) Presence Skin Breakdown/Ulcer: No (05/28/2016 08:24:Joanna Clark RN) Special Diet: No (05/28/2016 08:24:Joanna Clark RN) Pt Requests Assistant Women'S Soccer Coach Visit: No (05/28/2016 08:24:Joanna Clark RN) Hx of Any of the Following?: N/A (05/28/2016 08:24:Joanna Clark RN) New Diagnosis of: N/A (05/28/2016 08:24:Joanna Clark RN) Requires Assist w/Ambulation: No (05/28/2016 08:24:Joanna Clark RN) Uses Assist Device to Ambulate: No (05/28/2016 08:24:Joanna Clark RN) Pt Requires Help w/ADL's: No (05/28/2016 08:24:Joanna Clark RN)
--- NOTE | 2016-05-30 06:16 | L&D Care Plan ---
LD CARE PLANS Datetime Report Generated by CPN: 05/30/2016 06:15 Datetime: 05/28/2016 07:56 Pain State: Risk For (SHAYY Jose) Related To: Labor and Delivery Process; Surgical Procedure (SHAYY Jose) Goal(s): Patients Pain will be Assessed and Managed; Patient will Verbalize Adequate Relief of Pain or the Ability to [place] with Current Pain (SHAYY Jose) Interventions: Assess Pain Severity on Scale of 0 (None) to 5 (Severe); Assess Type, Location and Intensity of Pain Each Time Client Reports Discomfort and Notify Provider if Unusal Pain Develops; Encourage Proper Breathing and Relaxation Techniques; Offer Alternatives Such as Repositioning, Calm Environment, Massages, Diversional Activities, Ice Pack, Splinting, and Ambulation; Administer Analgesics as Ordered; Assist with Epidural Placement as Appropriate; Evaluate Therapeutic Effectiveness of Medication and Treatments (SHAYY Jose) Outcome: Patient will Report Absence or Relief of Pain Consistent with Established Pain Goal (SHAYY Jose) Status: Ongoing (Joanna Clark RN) Outcome: Patient will have a Decrease in Signs and Symptoms of Discomfort (SHAYY Jose) Status: Ongoing (Joanna Clark RN) Outcome: Pain will be Controlled During Procedures (SHAYY Jose) Status: Ongoing (Joanna Clark RN) Anxiety State: Risk For (SHAYY Jose) Related To: Labor and Delivery Process; Surgical Procedure (SHAYY Jose) Goal(s): Patient will have Decreased Anxiety and be able to Function at Acceptable Levels (SHAYY Jose) Interventions: Assess Verbal and Nonverbal Behavioral Indicators of Anxiety; Assist Patient to Identify and Verbalize Symptoms of Anxiety; Identify and Demonstrate Techniques to Control Anxiety; Assist Patient with Coping Mechanisms to Manage Anxiety; Provide Theraputic Touch for the Patient; Explain to Patient, Using a Calm Reassuring Approach and Nonmedical Terms, All Activities, Procedures, and Concerns; Instruct Patient and Family about Post Discharge Care, Limitations, Symptoms to Report and Resources Available (SHAYY Jose) Outcome: Patient will Identify, Verbalize and Demonstrate Techniques to Control Anxiety (SHAYY Jose) Outcome: Patient's Posture, Facial Expressions, Gestures and Activity Level will Reflect Decreased Anxiety (SHAYY Jose) Outcome: Patient will Verbalize a Sense of Control and/or Acceptance of the Situation (SHAYY Jose) Outcome: Patient will Identify and Utilize Support Person (SHAYY Jose) Knowledge Deficit State: Risk For (Annotations: Data stored by CPN on behalf of user) (SHAYY Jose) Related To: Labor and Delivery Process; Treatment and Procedures; Impending Alterations in Family Dynamics; Feeding and Infant Care; Community Resources and Available Support Mechanisms (Joanna Clark RN) Goal(s): Patient will Accurately Verbalize Understanding of Plan of Care and Treatment; Patient and Family will Accurately Verbalize Understanding of the Disease Process (Joanna Clark RN) Interventions: Assess Motivation and Willingness of Patient/Family to Learn; Assess Preferred Learning Mode: One to One Instruction, Reading, Videos, Group Discussion or Demonstration; Assess Barriers to Learning: Pain, Emotional State, Language Barrier, Cognitive Impairment, Visual or Hearing Deficits; Assess Patient and Family Knowledge of Disease Process, Medications and Treatment; Discuss Therapy and/or Treatment Options, Describe Rationale Behind Management, Therapy and Treatment Recommendations; Instruct Patient and Family on Signs and Symptoms to Report; Instruct Patient and Family on Medication Effects and Side Effects; Provide Appropriate and Timely Education Using Multiple Techniques; Provide Patient and Family with Support Group Information and Resources; Give Clear and Thorough Explanations and Demonstrations (Joanna Clark RN) Outcome: Patient and Family will Verbalize Understanding of Condition, Treatment and Signs and Symptoms to Report (Joanna Clark RN) Status: Ongoing (Joanna Clark RN) Outcome: Patient will Identify Perceived Learning Needs and Express Motivation to Learn (Joanna Clark RN) Status: Ongoing (Joanna Clark RN) Outcome: Patient will Verbalize Understanding of Desired Content, and/or Performs Desired Skill Prior to Discharge (Joanna Clark RN) Status: Ongoing (Joanna Clark RN) Infection State: Risk For (Joanna Clark RN) Related To: Prolonged Labor or Induction; Invasive Procedures; Altered Tissue Integrity (Joanna Clark RN) Goal(s): The Patient will be Free of Infection, Vital Signs Stable and Lab Work within Normal Parameters (Joanna Clark RN) Interventions: Instruct and Reinforce Proper Handwashing, Hygiene, and Care Techniques to Patient and Family; Monitor Vital Signs; Monitor Patient for the Following Signs of Infection: Fever, Abdominal Tenderness, Unusual Discharge; Monitor Aminiotic Fluid, Urine and Lochia for Color and Odor; Observe Wounds, Incisions and Invasive Line Sites for Redness, Drainage and Edema; Assess IV Sites per Hospital Policy; Monitor Lab and Test Results and Notify Provider of Abnormal Findings; Assess Nutritional Status and Promote Good Nutrition (Joanna Clark RN) Outcome: Patient will Remain Free of Infection (Joanna Clark RN) Status: Ongoing (Joanna Clark RN) Outcome: Infection will be Recognized Early to Allow for Prompt Treatment (Joanna Clark, RN) Status: Ongoing (Joanna Clark, RN) Outcome: Patient will have Vital Signs Within Expected Range (Joanna Clark RN) Status: Ongoing (Joanna Clark, MASS[place]) Impaired Skin Integrity State: Risk For (Joanna Clark, MASSIMO) Related To: Vaginal Delivery; Prolonged Bedrest; Altered Tissue Integrity; Invasive Procedures (Joanna Clark, RN) Goal(s): Patient will Maintain Optimal Skin Integrity, Free of Breakdown, Injury or Infection (Joanna Clark, RN) Interventions: Complete Screening for Pressure Ulcer Risk and Initiate Protocol per Hospital Policy; Monitor Site of Skin Impairment for Color Changes, Redness, Swelling, Warmth, Pain or Other Signs of Infection; Encourage and Assist with Position Changes; Monitor Patient's Mobility Status; Provide Adequate Nutrition and Fluids; Teach Patient Appropriate Hygienic Care; Teach Patient/Family Skin Care Management (Joanna Clark, RN) Outcome: Patient will not have Evidence of Injury Such as Skin Breakdown, Scrapes, Cuts, or Bruising (Joanna Clark, RN) Status: Ongoing (Joanna Clark, RN) Outcome: Patient will Report Any Altered Sensation or Pain at Site of Skin Impairment (Joanna Clark, RN) Status: Ongoing (Joanna Clark, RN) Outcome: Patients Incisions and Wounds will be without Signs or Symptoms of Infection (Joanna Clark, RN) Status: Ongoing (Joanna Clark, RN) Outcome: Patient will Demonstrate Understanding of Plan to Heal Skin and Prevent Reinjury and Verbalize Risk Factors (Joanna Clark, RN) Status: Ongoing (Joanna Clark, RN)
[2016-05-30] MEDS: IBUPROFEN 800 MG TABLET PO SCH (06:25)
[2016-05-30 08:34] VITALS: BP 137/75
[2016-05-30 09:29] LABS: HEMATOCRIT 27.4 % (36.0-47.0); HEMOGLOBIN 9.3 g/dL (12.0-15.5); HGB HCT DIFFERENCE 0.5; MEAN CORPUSCULAR HEMOGLOBIN 31.2 pg (27.0-33.4); MEAN CORPUSCULAR VOLUME 92 fl (80-97); RED BLOOD COUNT 2.98 10^6/uL (3.72-5.28); RED CELL DISTRIBUTION WIDTH 14.3 % (11.5-14.0); WHITE BLOOD COUNT 8.2 10^3/uL (4.0-10.5)
[2016-05-30] MEDS: SENNOSIDES/DOCUSATE 8.6-50 MG 1 EACH TABLET PO SCH (09:49)
[2016-05-30] MEDS: PRENATAL VITAMIN W-O CA NO5/FE FUMARATE/FA CAPSULE PO SCH (09:49)
[2016-05-30] MEDS: FERROUS SULFATE 325 MG TABLET PO SCH (09:49)
[2016-05-30] MEDS: DOCUSATE SODIUM 100 MG CAPSULE PO SCH (09:49)
--- NOTE | 2016-05-30 10:35 | PDOC DISCHARGE SUMMARY ---
Final Diagnosis Discharge Date: 05/30/16 - Final Diagnosis (1) Delivery normal Is this a current diagnosis for this admission?: Yes (2) Gestational HTN Is this a current diagnosis for this admission?: Yes Discharge Data - Discharge Medication Home Medications: Pnv No.122/Iron/Folic Acid [ Multi Tablet] 1 tab PO DAILY 05/28/16 Reason(s) for Admission: Induction of Labor Procedures: NST Intrapartum Procedure(s): Spontaneous Vaginal Delivery Complication(s): Laceration-Perineal Laceration-Degree: 2nd - Diagnosis Test Laboratory: Temp Pulse Resp BP Pulse Ox 97.8 F 74 18 137/75 H 100 05/30/16 08:17 05/30/16 08:17 05/30/16 08:17 05/30/16 08:17 05/30/16 08:17 05/28/16 05/28/16 05/29/16 06:35 06:57 06:41 RBC 3.73 3.17 L Hgb 11.7 L 9.9 L Hct 33.6 L 28.6 L Urine Opiates Screen NEGATIVE 05/30/16 09:16 RBC 2.98 L Hgb 9.3 L Hct 27.4 L Urine Opiates Screen - Discharge information/Instructions Discharge Activity: Activity As Tolerated, Pelvic Rest Discharge Diet: Regular Disposition: HOME, SELF-CARE Follow [facility] with: [facility] in: 4, Weeks
== END 2016-05-30 11:47 | disposition home or self-care (01) | DRG 775 ==
LOC: LR 06:19 → 2S 05-29 01:10
PROVIDERS: ADMIT Obstetrics & Gynecology; ATTEND Obstetrics & Gynecology
PROC: 10E0XZZ Delivery of Products of Conception, External Approach (ICD-10-PCS; principal; 2016-05-28)
PROC: 0KQM0ZZ Repair Perineum Muscle, Open Approach (ICD-10-PCS; 2016-05-28)
PROC: 10907ZC Drainage of Amniotic Fluid, Therapeutic from Products of Conception, Via Natural or Artificial Opening (ICD-10-PCS; 2016-05-28)
PROC: 3E0234Z Introduction of Serum, Toxoid and Vaccine into Muscle, Percutaneous Approach (ICD-10-PCS; 2016-05-30)
DX: O13.4 Gestational [pregnancy-induced] hypertension without significant proteinuria, complicating childbirth (principal); O36.0130 Maternal care for anti-D [Rh] antibodies, third trimester, not applicable or unspecified; O70.1 Second degree perineal laceration during delivery; Z3A.39 39 weeks gestation of pregnancy; Z37.0 Single live birth; Z23 Encounter for immunization; Z88.0 Allergy status to penicillin
CPT/HCPCS: 36415; 80053; 80307; 81001; 83615; 84550; 85025; 85027; 86592; 86850; 86870; 86900; 86901; 90686; C1726; J2300; J2550; J2590; J3490